=== PATIENT | male | born 1970 | race Caucasian/White ===

== ENCOUNTER → 2017-11-13 15:32 | Outpatient (BNVA) | payer MEDICARE, SELFPAY | PROVIDERS: PCP General Practice; Referring Provider General Practice; Visit Provider Surgery | DX: K62.89 Other specified diseases of anus and rectum (principal) | CPT/HCPCS: 99213 ==

== ENCOUNTER 2017-11-15 18:24 | Emergency (ER) | payer MEDICARE, SELFPAY ==
[2017-11-15 18:52] VITALS: BP 141/92; PULSE 100; RESP 22; TEMP 37; O2SAT 99
[2017-11-15 19:19] LABS: Abs Immature Grans 0.03 k/cumm (0.0-0.09); HCT 44.9 % (40.0-50.0); HGB 16.1 g/dL (13.5-17.5); Mean Corp. HGB Concentration 35.9 g/dL (32.0-36.0); Mean Corpuscular Hemoglobin 30.3 pg (27.0-33.0); Mean Corpuscular Volume 84.4 fL (80-95); Mean Platelet Volume 9.1 fL (8.0-11.0); Platelet Count 349 x1000/uL (130-400); RBC 5.32 m/cumm (4.50-6.00); RBC Distribution Width 12.6 % (11.8-14.1); White Blood Cell Count 15.82 k/cumm (4.4-10.8)
[2017-11-15 19:33] LABS: ALT 37 U/L (12-78); AST 20 U/L (15-37); Albumin 4.8 g/dL (3.4-5.0); Alkaline Phosphatase 113 U/L (46-116); Anion Gap 12.4 mmol/L (3-11); BUN 16 mg/dL (7-18); Bilirubin, Total 0.5 mg/dL (0.2-1.0); CO2 27.6 mmol/L (21.0-32.0); CREATININE 0.97 mg/dL (0.70-1.30); Calcium 9.3 mg/dL (8.5-10.1); Chloride 98 mmol/L (98-107); Glucose 114 mg/dL (70-100); Potassium 3.7 mmol/L (3.5-5.1); Sodium 138 mmol/L (136-145); Total Protein 8.6 g/dL (6.4-8.2)
[2017-11-15 19:53] LABS: Absolute Lymphocyte Count 1.58 k/cumm (1.2-3.4); Atypical Lymphocytes % 5
--- NOTE | 2017-11-15 19:53 | DI.RAD_ITS ---
SYMPTOMS/DIAGNOSIS: ABDOMINAL PAIN PA CHEST AND FLAT AND UPRIGHT ABDOMEN: Comparison is made with chest x-ray dated June,. The heart size is normal. The lungs are clear. No free air is seen. There is no bowel dilatation or air-fluid levels. There is a normal quantity of stool. No urinary tract calculi are visible. IMPRESSION: Negative chest and abdomen.
[2017-11-15 19:54] LABS: Absolute Eosinophil Count 0.16 k/cumm (0.0-0.7); Absolute Monocyte Count 1.11 k/cumm (0.11-0.7); Diff Comment Manual Differential; Other Cells 0; Promyelocytes % 0 %
[2017-11-15 19:55] LABS: Absolute Neutrophil Count 12.97 k/cumm (1.2-6.7)
[2017-11-15] MEDS: Ketorolac 30 MG/ML VIAL IVP (20:13)
[2017-11-15] MEDS: Normal Saline 1,000 ML 1000 ML IV (20:13)
--- NOTE | 2017-11-15 20:22 | DI.VRAD_ITS ---
EXAM: XR Abdomen 2 Views with XR Chest 1 View EXAM DATE/TIME: 11/15/2017 6:57 PM CLINICAL HISTORY: 47 years old, male; Pain; Abdominal pain; Prior surgery; Surgery type: Hernia TECHNIQUE: XR of the abdomen (2 views) with XR chest (1 view). COMPARISON: No relevant prior studies available. FINDINGS: Lungs: The lungs are clear. Pleural space: A pneumothorax. No pleural effusion. Heart/Mediastinum: The cardio mediastinal silhouette is within normal limits. Gastrointestinal tract: Nonobstructive bowel gas pattern. Intraperitoneal space: On the upright view, there is no evidence of pneumoperitoneum. There is a 5 mm rounded opacity in the right upper quadrant seen on series 1003, unknown etiology. This finding is not seen well on the other images and may be artifactual. Alternatively, may represent a small soft tissue calcification, ingested material, gallbladder or renal calculus. Vasculature: The portal vasculature is within normal limits. Bones/joints: The osseous structures are within normal limits. Soft tissues: Normal. IMPRESSION: Nonobstructive bowel gas pattern. No evidence of pneumoperitoneum. Dictated and Authenticated by: Kimi Deleon MD. Ordering:EDITA DE LEON MD
--- NOTE | 2017-11-15 20:25 | ED.GENADUL_ITS ---
Discharge Plan Disposition Patient Disposition: HOME Condition: Improving Discharge Details Chief Complaint: Abd Prob Clinical Impression: Diverticulitis Primary Care Provider: Seymour Martins ED Provider: Thee Rich Home Meds and New Rx's Prescriptions: New amoxicillin-pot clavulanate 875-125 mg tablet 1 tab PO BID 10 Days Qty: 20 RF: 0 Continue dibucaine [Nupercainal] 1 % ointment 1 applic GA QID PRN (Reason: rectal discomfort) Qty: 56.7 RF: 0 multivitamin [Daily Value] 1 EACH tablet 1 ea PO DAILY RF: 0 vitamin B complex [B Complete] 1 EACH tablet 1 ea PO DAILY RF: 0 nortriptyline 50 MG capsule 100 mg PO DAILY MDD 2 tabs 30 Days Qty: 60 RF: 3 ibuprofen 600 MG tablet 600 mg PO TID RF: 0 propranolol 10 MG tablet 20 mg PO BID RF: 0 medical marijuana 1 ea PO PRNRF: 0 loratadine-pseudoephedrine [Claritin-D 24 Hour] 1 EACH tablet extended release 24 hr 1 tab-cap PO daily prn PRNRF: 0 duloxetine 20 MG capsule,delayed release(DR/EC) 1 cap PO DAILY 30 Days Qty: 30 RF: 3 tizanidine 4 MG tablet 1 - 2 tab PO QHS PRN30 Days Qty: 60 RF: 5 acetaminophen [Tylenol Arthritis Pain] 650 MG tablet extended release 650 mg PO BID RF: 0 Discharge Data Discharge Date/Time-TO BE ENTERED AT DEPARTURE: 11/15/17 22:51 Medical Decision Making <Jeff Duval NP - Last Filed: 11/17/17 13:02> Patient presenting to the emergency department for chief complaint of abdominal pain. Patient states that he started having some discomfort yesterday evening in the left lower quadrant. Today it seems to radiate more to the right lower quadrant. Patient does state history of inguinal hernias that have been repaired and recent internal hemorrhoids. He does state that they have had some bleeding intermittently but no change. Patient states that he does have history of constipation with somewhat of a similar presentation but this seems more severe. Patient denies any nausea vomiting, fever chills, or urinary symptoms. Physical exam shows an exquisitely tender left lower quadrant and some tenderness to right lower quadrant with palpation that causes radiating pain into left lower quadrant. Patient has no CVA tenderness and otherwise unremarkable exam. Plan to perform plain film imaging and labs along with giving IV fluids and ketorolac for pain control. After review of labs that show a leukocytosis and a mild anion gap, review of radiological imaging that shows a nonobstructive bowel gas pattern patient was reassessed. Patient still had significant amount of pain and discomfort with no improvement of symptoms. Leukocytosis and no obstruction seen on plain film imaging we do feel that CT imaging is needed for concern of possible diverticulitis, or other intra-abdominal pathology. Patient was given 2 mg of morphine for further pain control. Pending CT results Patient was transferred to Dr. Rich for review of CT imaging and further disposition and treatment as needed. Lab Data Lab results reviewed: Yes I reviewed the patient's lab results. <Thee Rich MD - Last Filed: 11/15/17 23:29> Received signout from Mr. Duval. Please see his note regarding details of the patient's history, presentation, exam and plan of care. Patient CT did show evidence of acute sigmoid diverticulitis. His pain improved , tolerating liquids and solids by mouth, felt better. The patient will be discharged home on a course of Augmentin. To follow-up with primary care. He stable for discharge at this time. Did consent the patient with the use of opiates if needed he was provided a small number of Vicodin for home use HPI <Jeff Duval NP - Last Filed: 11/17/17 13:02> General Date/Time Provider Initiated Documentation: 11/15/17 18:41 . Limitations to Documentation: no limitations . Information obtained by: patient, RN notes reviewed and old records reviewed . History of Present Illness 47 year old M presents to the emergency department with the chief complaint of Abd pain, described as moderate, with intensity rated at 8. Quality is described as stabbing, aching, sharp, dull and constant, and is localized to the abdomen. Patient started experiencing this day(s) (1) and it has been constant. No relieving factors improve symptom(s), No exacerbating factors reported . Patient notes no other symptoms.. Patient did receive the following treatments prior to arrival, NSAID (this am) Related Data Home Medications Medication Instructions Recorded Confirmed acetaminophen [Tylenol Arthritis 650 mg PO BID 11/13/12 11/15/17 Pain] multivitamin [Daily Value] 1 ea PO DAILY 06/14/16 11/15/17 vitamin B complex [B Complete] 1 ea PO DAILY 06/14/16 11/15/17 nortriptyline 100 mg PO DAILY 30 Days #60 MDD 2 10/03/16 11/15/17 tabs ibuprofen 600 mg PO TID tab-cap 12/05/16 11/15/17 Medical Marijuana 1 ea PO PRN 05/16/17 11/13/17 propranolol 20 mg PO BID 05/16/17 11/15/17 duloxetine 1 cap PO DAILY 30 Days #30 cap 06/27/17 11/15/17 loratadine-pseudoephedrine 1 tab-cap PO daily prn PRN tab-cap 06/27/17 11/15/17 [Claritin-D 24 Hour] tizanidine 1 - 2 tab PO QHS PRN 30 Days #60 07/24/17 11/15/17 tab-cap dibucaine 1 % rectal ointment 1 applic GA QID PRN #56.7 gm 11/13/17 11/15/17 amoxicillin-pot clavulanate 1 tab PO BID 10 Days #20 tab 11/15/17 Previous Rx's Medication Instructions Recorded duloxetine 1 cap PO DAILY 30 Days #30 cap 06/27/17 dibucaine 1 % rectal ointment 1 applic GA QID PRN #56.7 gm 11/13/17 amoxicillin-pot clavulanate 1 tab PO BID 10 Days #20 tab 11/15/17 Allergies Allergy/AdvReac Type Severity Reaction Status Date / Time gabapentin AdvReac Severe Visual Verified 11/15/17 18:55 Disturbances pregabalin [From Lyrica] AdvReac Intermediate Verified 11/15/17 18:55 General Stated Complaint: Abd Prob LOLA: 3 Review of Systems <Jeff Duval NP - Last Filed: 11/17/17 13:02> Constitutional Denies chills, Denies fever(s) and Reports poor appetite Cardiovascular Denies chest pain and Denies dyspnea Respiratory Denies dyspnea Gastrointestinal Reports as per HPI, Reports abdominal pain, Denies melena, Denies change in bowel habits, Denies constipation, Denies diarrhea, Reports nausea and Reports vomiting Genitourinary Denies hematuria, Denies difficulty urinating, Denies urinary hesitancy, Denies urinary incontinence and Denies urinary urgency Integumentary/Breasts Denies rash Exam <Jeff Duval NP - Last Filed: 11/17/17 13:02> Const General: cooperative Orientation: alert, awake and oriented x3 Resp Effort & Inspection: normal respiratory effort and able to speak in complete sentences Auscultation: clear to auscultation bilaterally Cardio Rate: regular rate Rhythm: regular rhythm Heart Sounds: S1 normal and S2 normal GI Palpation: soft, no hepatosplenomegaly, not firm, no guarding, no masses, no pulsatile masses, not rigid, no splenomegaly and tender in the LLQ, in the RLQ and at McBurney's point; Cohen's sign negative, psoas sign negative and with no rebound tenderness Auscultation: normal bowel sounds Back/Spine/Pelvis Back: no CVA tenderness Neuro General: alert, awake, oriented x3, gait normal and moves all extremities Course <Jeff Duval NP - Last Filed: 11/17/17 13:02> Vital Signs Temperature 37 C 11/15/17 18:52 Pulse 100 H 11/15/17 18:52 Respiratory Rate 22 11/15/17 18:52 Blood Pressure 141/92 H 11/15/17 18:52 Pulse Oximetry 99 11/15/17 18:52 Temperature 37 C 11/15/17 18:52 Temperature Source Skin 11/15/17 18:52 Pulse 100 H 11/15/17 18:52 Respiratory Rate 22 11/15/17 18:52 Respiratory Effort Non-Labored 11/15/17 18:54 Blood Pressure 141/92 H 11/15/17 18:52 Blood Pressure Position Sitting 11/15/17 18:52 Pulse Oximetry 99 11/15/17 18:52 Oxygen Delivery Method Room Air 11/15/17 18:52 Oxygen Flow Rate 0 11/15/17 18:52 Pain Level 5 11/15/17 20:13 Lab/Test Results Lab/Test Results: Laboratory Tests Range/Units 11/15/17 11/15/17 19:10 19:10 WBC (4.4-10.8) k/cumm 15.82 H RBC (4.50-6.00) m/cumm 5.32 Hgb (13.5-17.5) g/dL 16.1 Hct (40.0-50.0) % 44.9 MCV (80-95) fL 84.4 MCH (27.0-33.0) pg 30.3 MCHC (32.0-36.0) g/dL 35.9 RDW (11.8-14.1) % 12.6 Plt Count (130-400) x1000/uL 349 MPV (8.0-11.0) fL 9.1 Immature Gran % See Differential Neutrophils % 80.0 Lymphocytes % 5.0 Monocytes % 7.0 Eosinophils % 1.0 Basophils % 0.0 Absolute Neutrophils (1.2-6.7) k/cumm 12.97 H Band Neutrophils % 2.0 Absolute Lymphocytes (1.2-3.4) k/cumm 1.58 Absolute Monocytes (0.11-0.7) k/cumm 1.11 H Absolute Eosinophils (0.0-0.7) k/cumm 0.16 Absolute Basophils (0.0-0.2) k/cumm 0.00 Metamyelocytes % 0.0 Myelocytes % 0.0 Promyelocytes % 0 Differential Comment Manual differential Atypical Lymphocytes 5 Other Cell Type 0 RBC Morphology See below Sodium (136-145) mmol/L 138 Potassium (3.5-5.1) mmol/L 3.7 Chloride (98-107) mmol/L 98 Carbon Dioxide (21.0-32.0) mmol/L 27.6 Anion Gap (3-11) mmol/L 12.4 H BUN (7-18) mg/dL 16 Creatinine (0.70-1.30) mg/dL 0.97 Estimated GFR/1.73 m2 (mL/min/1.73m2) >= 60.00 Glucose (70-100) mg/dL 114 H Calcium (8.5-10.1) mg/dL 9.3 Total Bilirubin (0.2-1.0) mg/dL 0.5 AST (15-37) U/L 20 ALT (12-78) U/L 37 Alkaline Phosphatase (46-116) U/L 113 Total Protein (6.4-8.2) g/dL 8.6 H Albumin (3.4-5.0) g/dL 4.8 Sign Out <Jeff Duval NP - Last Filed: 11/17/17 13:02> Sign Out Data: Sign Out Comment: Care of patient signed out to Dr. Rich for review of CT imaging, further disposition, further stabilization or treatment as needed. Last updated by Jeff Duval NP at 11/15/17 21:58
--- NOTE | 2017-11-15 20:49 | DI.VRAD_ITS ---
Addendum created by Kimi Deleon MD on 11/15/2017 8:49:42 PM EDT This addendum serves to clarify the findings under the category pleural space. The initial preliminary report states a pneumothorax. This finding represents a voice recognition dictation error and should state no pneumothorax. No pneumothorax is present on the chest radiograph. The remainder of findings and impression remain unchanged. Initial report created on 11/15/2017 8:21:33 PM EDT EXAM: XR Abdomen 2 Views with XR Chest 1 View EXAM DATE/TIME: 11/15/2017 6:57 PM CLINICAL HISTORY: 47 years old, male; Pain; Abdominal pain; Prior surgery; Surgery type: Hernia TECHNIQUE: XR of the abdomen (2 views) with XR chest (1 view). COMPARISON: No relevant prior studies available. FINDINGS: Lungs: The lungs are clear. Pleural space: A pneumothorax. No pleural effusion. Heart/Mediastinum: The cardio mediastinal silhouette is within normal limits. Gastrointestinal tract: Nonobstructive bowel gas pattern. Intraperitoneal space: On the upright view, there is no evidence of pneumoperitoneum. There is a 5 mm rounded opacity in the right upper quadrant seen on series 1003, unknown etiology. This finding is not seen well on the other images and may be artifactual. Alternatively, may represent a small soft tissue calcification, ingested material, gallbladder or renal calculus. Vasculature: The portal vasculature is within normal limits. Bones/joints: The osseous structures are within normal limits. Soft tissues: Normal. IMPRESSION: Nonobstructive bowel gas pattern. No evidence of pneumoperitoneum. Dictated and Authenticated by: Kimi Deleon MD. Ordering:EDITA DE LEON MD
[2017-11-15 20:58] VITALS: TEMP 37.6
[2017-11-15] MEDS: MORPHine 10 MG/ML VIAL 2 MG IVP ×2 (21:03→22:21)
--- NOTE | 2017-11-15 21:58 | DI.CT_ITS ---
SYMPTOMS/DIAGNOSIS: LEFT LOWER QUADRANT PAIN CT OF THE ABDOMEN AND PELVIS: Images were performed from the lung bases through the ischial tuberosities after IV and without oral contrast. Diverticula are seen along the lower descending and sigmoid colon. There is wall thickening and stranding in the fat at the junction of the descending and sigmoid colon, consistent with diverticulitis. There is no evidence of a drainable abscess or fluid collection. There is no abnormal bowel dilatation. The appendix appears normal. There is no evidence of free air. The lung bases are clear. The liver , gallbladder, spleen, pancreas, adrenals and kidneys, as well as urinary bladder appear normal. IMPRESSION: Diverticulitis at the junction of the descending and sigmoid colon.
--- NOTE | 2017-11-15 22:10 | DI.VRAD_ITS ---
EXAM: CT Abdomen and Pelvis With Intravenous Contrast EXAM DATE/TIME: 11/15/2017 8:58 PM CLINICAL HISTORY: 47 years old, male; Pain; Abdominal pain; Localized; Left lower quadrant (llq) TECHNIQUE: Axial computed tomography images of the abdomen and pelvis with intravenous contrast. Coronal and sagittal reformatted images were created and reviewed. CONTRAST: 100 ml of Omnipaque 350 administered intravenously. COMPARISON: CR XR ABD FLAT UPRIGHT PA CHEST 11/15/2017 7:45 PM FINDINGS: Lower thorax: No acute findings. ABDOMEN: Liver: Normal. No mass. Gallbladder and bile ducts: Normal. No calcified stones. No ductal dilation. Pancreas: Normal. No ductal dilation. Spleen: Normal. No splenomegaly. Adrenals: Normal. No mass. Kidneys and ureters: Punctate nonobstructing left interpolar renal calculus. Subcentimeter right lower pole renal hypoattenuating lesion, too small to further characterize, likely a small cyst. Stomach and bowel: Diverticulosis with focal wall thickening and pericolonic inflammatory change in the sigmoid colon surrounding a diverticulum consistent with acute diverticulitis. No evidence of drainable fluid collection or pneumoperitoneum Appendix: Normal appendix. PELVIS: Bladder: Unremarkable as visualized. Reproductive: Unremarkable as visualized. ABDOMEN and PELVIS: Intraperitoneal space: See Stomach And Bowel Finding. Bones/joints: No acute fracture. No dislocation. Soft tissues: Tiny fat containing umbilical hernia. Vasculature: Mild aortoiliac atherosclerotic calcification. Lymph nodes: Normal. No enlarged lymph nodes. IMPRESSION: Acute sigmoid diverticulitis. No evidence of fluid collection or pneumoperitoneum. Dictated and Authenticated by: Kimi Deleon MD. Ordering:EDITA DE LEON MD
[2017-11-15] MEDS: Amoxicillin 875/Clav. 125 TAB PO (22:44)
[2017-11-15] MEDS: HYDROcodone 5/Acetaminophen 325 TAB PO (22:44)
[2017-11-15 22:50] VITALS: BP 124/83; PULSE 98; RESP 16; TEMP 37.2; O2SAT 97
[2017-11-15] MEDS: Omnipaque 350 MG/ML 100 ML BTL IJ (22:51)
== END 2017-11-15 22:51 | disposition home or self-care (01) ==
PROVIDERS: Nurse Practitioner Family; Emergency Provider Emergency Medicine; PCP General Practice
DX: K57.32 Diverticulitis of large intestine without perforation or abscess without bleeding (principal)
CPT/HCPCS: 36415; 80053; 96361; 96374; 96375; 96376; 99285; 74022; 74177; 85025; 99284; J1885; J2270; J3490

== ENCOUNTER 2017-11-23 06:26 | Day surgery (SDC) | payer MEDICARE, SELFPAY ==
[2017-11-23 06:41] VITALS: BP 123/93; PULSE 69; RESP 18; TEMP 36.9; O2SAT 95
[2017-11-23] MEDS: Lactated Ringers 1,000 ML 30 ML IV (07:15)
[2017-11-23 08:30] VITALS: BP 104/70; PULSE 68; RESP 12; TEMP 36.6; O2SAT 98
[2017-11-23 08:35] VITALS: BP 105/74; BP 121/80; PULSE 61; PULSE 70; RESP 13; RESP 14; TEMP 36.6; O2SAT 98; O2SAT 99
[2017-11-23 08:40] VITALS: BP 119/82; PULSE 60; RESP 14; TEMP 36.6; O2SAT 99
[2017-11-23 08:54] VITALS: BP 116/83; PULSE 58; RESP 12; TEMP 36.6; O2SAT 100
--- NOTE | 2017-11-23 09:29 | W.PM.DSUDISC ---
Discharge Plan Disposition Patient Disposition: HOME Condition: Good Discharge Details Reason For Visit: Rectal Pain Attending Provider: Lorenzo Hernandez Primary Care Provider: Seymour Martins Home Meds and New Rx's Prescriptions: Continue dibucaine [Nupercainal] 1 % ointment 1 applic MT QID PRN (Reason: rectal discomfort) Qty: 56.7 RF: 0 multivitamin [Daily Value] 1 EACH tablet 1 ea PO DAILY RF: 0 vitamin B complex [B Complete] 1 EACH tablet 1 ea PO DAILY RF: 0 nortriptyline 50 MG capsule 100 mg PO HS MDD 2 tabs 30 Days Qty: 60 RF: 3 ibuprofen 600 MG tablet 600 mg PO TID PRNRF: 0 propranolol 10 MG tablet 20 mg PO BID RF: 0 medical marijuana 1 ea PO PRNRF: 0 loratadine-pseudoephedrine [Claritin-D 24 Hour] 1 EACH tablet extended release 24 hr 1 tab-cap PO daily prn PRNRF: 0 tizanidine 4 MG tablet 1 - 2 tab PO QHS PRN30 Days Qty: 60 RF: 5 acetaminophen [Tylenol Arthritis Pain] 650 MG tablet extended release 650 mg PO BID RF: 0 amlodipine 10 mg Tablet 10 mg PO HS RF: 0 amoxicillin-pot clavulanate 875-125 mg tablet 1 tab PO BID 10 Days Qty: 20 RF: 0 Discharge Instructions Instructions: Sphincterotomy (DC), Rubber Band Ligation (DC) Referrals: Lorenzo Hernandez DO [ [facility] STAFF PHYSICIAN] - 12/04/17 2:00 pm (Follow up after sphincterotomy, and hemorrhoid banding) Activity:: Activity as Tolerated Remove Dressings/Wound Care:: 24 hours Shower/Bathe:: 24 hours Diet:: Normal Diet Discharge Orders Discharge Orders: Discharge Order (Routine); Ordered 11/23/17 Ordered By: Lorenzo Hernandez DS: Diagnosis Discharge Diagnosis (1) Anal fissure: Status: Acute Asessment and Plan: Lateral sphincterotomy performed (2) Bleeding hemorrhoids: Status: Acute Asessment and Plan: Rubber band ligation of multiple hemorrhoids
--- NOTE | 2017-11-23 09:33 | PDOC.DSDIS_ITS ---
Discharge Plan Disposition Patient Disposition: HOME Condition: Good Discharge Details Reason For Visit: Rectal Pain Attending Provider: Lorenzo Hernandez Primary Care Provider: Seymour Martins Home Meds and New Rx's Prescriptions: Continue dibucaine [Nupercainal] 1 % ointment 1 applic [place] QID PRN (Reason: rectal discomfort) Qty: 56.7 RF: 0 multivitamin [Daily Value] 1 EACH tablet 1 ea PO DAILY RF: 0 vitamin B complex [B Complete] 1 EACH tablet 1 ea PO DAILY RF: 0 nortriptyline 50 MG capsule 100 mg PO HS MDD 2 tabs 30 Days Qty: 60 RF: 3 ibuprofen 600 MG tablet 600 mg PO TID PRNRF: 0 propranolol 10 MG tablet 20 mg PO BID RF: 0 medical marijuana 1 ea PO PRNRF: 0 loratadine-pseudoephedrine [Claritin-D 24 Hour] 1 EACH tablet extended release 24 hr 1 tab-cap PO daily prn PRNRF: 0 tizanidine 4 MG tablet 1 - 2 tab PO QHS PRN30 Days Qty: 60 RF: 5 acetaminophen [Tylenol Arthritis Pain] 650 MG tablet extended release 650 mg PO BID RF: 0 amlodipine 10 mg Tablet 10 mg PO HS RF: 0 amoxicillin-pot clavulanate 875-125 mg tablet 1 tab PO BID 10 Days Qty: 20 RF: 0 Discharge Instructions Instructions: Sphincterotomy (DC), Rubber Band Ligation (DC) Referrals: Lorenzo Hernandez DO [ [facility] STAFF PHYSICIAN] - 12/04/17 2:00 pm (Follow up after sphincterotomy, and hemorrhoid banding) Activity:: Activity as Tolerated Remove Dressings/Wound Care:: 24 hours Shower/Bathe:: 24 hours Diet:: Normal Diet Discharge Orders Discharge Orders: Discharge Order (Routine); Ordered 11/23/17 Ordered By: Lorenzo Hernandez DS: Diagnosis Discharge Diagnosis (1) Anal fissure: Status: Acute Asessment and Plan: Lateral sphincterotomy performed (2) Bleeding hemorrhoids: Status: Acute Asessment and Plan: Rubber band ligation of multiple hemorrhoids
[2017-11-23 09:55] VITALS: BP 147/99; PULSE 78; RESP 16; TEMP 35.7; O2SAT 96
--- NOTE | 2017-11-23 16:32 | W.PM.OP ---
Date of service: 11/23/17 Time of Service: 08:30 Operative Note DATE OF PROCEDURE: 11/23/17 PRE-OP DIAGNOSIS: Anal and rectal pain POST-OP DIAGNOSIS: other PROCEDURE: 1. Lateral sphincterotomy 2. Rubber band ligation of multiple hemorrhoidal columns SURGEON: Lorenzo Hernandez SCORE CALLER: Jyoti Bergman ANESTHESIA: MAC (Sunitha Oliveira CRNA; ASA 2, Mallampati class II), local (1.3% Exparel mixed with preservative-free saline) and spinal (Saddle block) ESTIMATED BLOOD LOSS: 1 PATHOLOGY: none sent COMPLICATIONS: None Patient was transported to: PACU Patient's condition: stable Indications: 57-year-old male referred with about a week's worth of anal pain. This started after passing hard stool and being constipated. [place] severe burning pain after passing the stool with associated bleeding. The bleeding has resolved though he has intermittent episodes still. The pain has improved but it still present. He has had a history of hemorrhoids which he is been reluctant to treat surgically instead trying conservative medical management. He says he has had these intermittent episodes of bleeding not as severe as the current with some associated discomfort. He now is significant discomfort with bowel movements. He does have a history of constipation he denies any fever, chills, malaise, and has had no known weight loss. 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 Subsequently, a lateral sphincterotomy was performed and rubber band ligation was performed of the engorged hemorrhoidal columns. Procedure Description: The patient was brought to the operating room. A timeout was taken prior to placement of a spinal saddle block. He was then positioned prone jackknife with the gluteal cleft by standard taping. A separate timeout was then taken reviewing the patient's: Identification, allergies, medications, and procedure. Sedation was then titrated for effect by the DARYL. The perineum was prepped with Betadine, and block draped in the standard sterile fashion. I began by performing gentle digital examination of the anus and rectum, where I could palpate it tightened external anal sphincter which was a little less than 1 cm in diameter, and was palpable circumferentially. I then proceeded to perform a circumferential anoscopic examination of the anus and rectum. The posterior midline fissure was noticeable, and was thickened due to chronic scarring. Also, notable was the right posterior and left lateral hemorrhoidal columns which were notably engorged and friable. After completing my circumferential inspection of the anus and distal rectum, I proceeded to band the left lateral hemorrhoidal column in the right posterior hemorrhoidal column by rubber band ligation. It required for firings to adequately address the excess engorged hemorrhoidal tissue. With the banding complete I then proceeded to perform a lateral sphincterotomy. I made a 1.5 cm radial incision starting just above the anal verge. Blunt dissection was then used to dissect out anterior and posterior to the most distal portion of the external sphincter muscle. A right angle clamp was then used to separate out a little less than a centimeter band of the tightened external sphincter muscle, this accounted for the rubber band palpable on digital examination. Once this was exteriorized, it was divided using cautery. Hemostasis was obtained in the wound bed using cautery. I then injected Exparel circumferentially around the anal verge for pain control. The patient was awakened in the operating room and brought to post?anesthesia care unit in good condition. All counts were reported as correct x2.
--- NOTE | 2017-11-23 16:51 | ROE_ITS ---
Date of service: 11/23/17 Time of Service: 08:30 Operative Note DATE OF PROCEDURE: 11/23/17 PRE-OP DIAGNOSIS: Anal and rectal pain POST-OP DIAGNOSIS: other PROCEDURE: 1. Lateral sphincterotomy 2. Rubber band ligation of multiple hemorrhoidal columns SURGEON: Lorenzo Hernandez JOURNEYMAN CARPENTER: Jyoti Bergman ANESTHESIA: MAC (Sunitha Oliveira CRNA; ASA 2, Mallampati class II), local (1.3% Exparel mixed with preservative-free saline) and spinal (Saddle block) ESTIMATED BLOOD LOSS: 1 PATHOLOGY: none sent COMPLICATIONS: None Patient was transported to: PACU Patient's condition: stable Indications: 57-year-old male referred with about a week's worth of anal pain. This started after passing hard stool and being constipated. [place] severe burning pain after passing the stool with associated bleeding. The bleeding has resolved though he has intermittent episodes still. The pain has improved but it still present. He has had a history of hemorrhoids which he is been reluctant to treat surgically instead trying conservative medical management. He says he has had these intermittent episodes of bleeding not as severe as the current with some associated discomfort. He now is significant discomfort with bowel movements. He does have a history of constipation he denies any fever, chills, malaise, and has had no known weight loss. 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 Subsequently, a lateral sphincterotomy was performed and rubber band ligation was performed of the engorged hemorrhoidal columns. Procedure Description: The patient was brought to the operating room. A timeout was taken prior to placement of a spinal saddle block. He was then positioned prone jackknife with the gluteal cleft by standard taping. A separate timeout was then taken reviewing the patient's: Identification, allergies, medications, and procedure. Sedation was then titrated for effect by the DARYL. The perineum was prepped with Betadine, and block draped in the standard sterile fashion. I began by performing gentle digital examination of the anus and rectum, where I could palpate it tightened external anal sphincter which was a little less than 1 cm in diameter, and was palpable circumferentially. I then proceeded to perform a circumferential anoscopic examination of the anus and rectum. The posterior midline fissure was noticeable, and was thickened due to chronic scarring. Also, notable was the right posterior and left lateral hemorrhoidal columns which were notably engorged and friable. After completing my circumferential inspection of the anus and distal rectum, I proceeded to band the left lateral hemorrhoidal column in the right posterior hemorrhoidal column by rubber band ligation. It required for firings to adequately address the excess engorged hemorrhoidal tissue. With the banding complete I then proceeded to perform a lateral sphincterotomy. I made a 1.5 cm radial incision starting just above the anal verge. Blunt dissection was then used to dissect out anterior and posterior to the most distal portion of the external sphincter muscle. A right angle clamp was then used to separate out a little less than a centimeter band of the tightened external sphincter muscle, this accounted for the rubber band palpable on digital examination. Once this was exteriorized, it was divided using cautery. Hemostasis was obtained in the wound bed using cautery. I then injected Exparel circumferentially around the anal verge for pain control. The patient was awakened in the operating room and brought to post ?anesthesia care unit in good condition. All counts were reported as correct x2.
== END 2017-11-23 10:40 | disposition home or self-care (01) ==
PROVIDERS: PCP General Practice; Visit Provider Surgery
PROC: (CPT 46080; principal; 2017-11-23 07:30)
PROC: (CPT 46080; 2017-11-23 07:30)
DX: K60.1 Chronic anal fissure (principal); K64.5 Perianal venous thrombosis
CPT/HCPCS: 46080; J2250; J2405

== ENCOUNTER → 2017-12-04 10:52 | Outpatient (BNVA) | payer MEDICARE, SELFPAY | PROVIDERS: PCP General Practice; Referring Provider General Practice; Visit Provider Surgery | DX: Z48.815 Encounter for surgical aftercare following surgery on the digestive system (principal); K60.1 Chronic anal fissure; K64.5 Perianal venous thrombosis ==

== ENCOUNTER 2018-06-28 17:39 | Outpatient (REF) | payer MEDICARE, SELFPAY ==
[2018-06-28 19:59] LABS: Clarity Clear; Specific Gravity 1.022 (1.005-1.025)
[2018-06-28 20:01] LABS: Bacteria Negative HPF (Negative); C & S Indicated? No; Casts Negative LPF (Negative); Crystals Negative HPF (Negative); Epithelial Cells Negative HPF (Negative); Mucus Negative (Negative); Other Cells Negative (Negative); RBC 0-2 (0-2); WBC 0-2 HPF (0-5)
== END 2018-06-28 17:59 ==
LOC: LBN 17:39
PROVIDERS: PCP General Practice; Visit Provider General Practice
DX: R30.0 Dysuria (principal)
CPT/HCPCS: 81003; 81015

== ENCOUNTER 2018-10-14 11:05 | Emergency (ER) | payer MEDICARE, SELFPAY ==
--- NOTE | 2018-10-14 11:12 | NUR.NOTE ---
Nursing Note: pt has history of back spasm. pt woke up yesterday morning with a significant spasm 7/10 pain pt states normal ketorolac and physical therapy resolve his symptoms
[2018-10-14 11:14] VITALS: BP 147/96; PULSE 80; RESP 16; TEMP 37.2; O2SAT 99
--- NOTE | 2018-10-14 11:24 | W.ED.GENAD ---
Discharge Plan Disposition Patient Disposition: HOME Discharge Details Chief Complaint: Nk/Back Pain Clinical Impression: Chronic back pain Primary Care Provider: Seymour Martins ED Provider: Andrez Urbina Home Meds and New Rx's Prescriptions: Continued tizanidine 4 mg tablet 4 mg PO BID PRN (Reason: muscle spasticity) 30 Days Qty: 60 RF: 5 ibuprofen 800 mg tablet 800 mg PO TID PRN (Reason: pain) 30 Days Qty: 90 RF: 5 multivitamin [Daily Value] 1 EACH tablet 1 ea PO DAILY RF: 0 vitamin B complex [B Complete] 1 EACH tablet 1 ea PO DAILY RF: 0 propranolol 10 MG tablet 20 mg PO BID RF: 0 medical marijuana 1 ea PO PRNRF: 0 loratadine-pseudoephedrine [Claritin-D 24 Hour] 1 EACH tablet extended release 24 hr 1 tab-cap PO daily prn PRNRF: 0 nortriptyline 50 mg capsule 100 mg PO QHS 30 Days Qty: 60 RF: 5 acetaminophen [Tylenol Arthritis Pain] 650 MG tablet extended release 650 mg PO BID RF: 0 amlodipine 10 mg Tablet 10 mg PO HS RF: 0 Discharge Instructions Instructions: Chronic Back Pain (ED) Additional Instructions: Take 650 mg of acetaminophen (Tylenol) every 6 hours in addition to 600 mg of ibuprofen every 6 hours. Follow-up with your primary care provider. You should discuss physical therapy. Return to the emergency department immediately if you develop any numbness, fever, or for any other concerning or worsening symptoms at all. Referrals: Seymour Martins MD [Primary Care Provider] - Medical Decision Making This patient is a 48-year-old male who presents to the emergency department with chief complaint of back pain. Based on the history, exam, this is unlikely to be due to cauda equina syndrome, discitis, osteomyelitis, epidural abscess, epidural hematoma. Patient feels better after ketorolac and methocarbamol. He will be provided return precautions, discharge instructions and he agrees with the outpatient treatment plan. HPI My back is having a spasm. This patient is a 48-year-old male who presents to the emergency department with chief complaint of back spasm. He states that it started yesterday morning when he woke up. Nothing has made him feel better. It is located on the left mid back and radiates up towards the shoulder. No fevers, chest pain, difficulty breathing, recent cold. He does complain of weakness in his arm from the severe pain. He denies any other numbness or weakness. No difficulty with urination or stool, no leaking of urine or stool. The pain does not really radiate anywhere else. Pain is been constant. It is a sharp. Feels like previous episodes of back pain. General Date/Time Provider Initiated Documentation: 10/14/18 11:24. Related Data Home Medications Medication Instructions Recorded Confirmed acetaminophen [Tylenol Arthritis 650 mg PO BID 11/13/12 10/14/18 Pain] multivitamin [Daily Value] 1 ea PO DAILY 06/14/16 10/14/18 vitamin B complex [B Complete] 1 ea PO DAILY 06/14/16 10/14/18 Medical Marijuana 1 ea PO PRN 05/16/17 04/23/18 propranolol 20 mg PO BID 05/16/17 10/14/18 loratadine-pseudoephedrine 1 tab-cap PO daily prn PRN tab-cap 06/27/17 10/14/18 [Claritin-D 24 Hour] amlodipine 10 mg PO HS 11/20/17 10/14/18 ibuprofen 800 mg tablet 800 mg PO TID PRN 30 Days #90 tab 04/23/18 10/14/18 tizanidine 4 mg tablet 4 mg PO BID PRN 30 Days #60 tab 04/23/18 10/14/18 nortriptyline 50 mg capsule 100 mg PO QHS 30 Days #60 cap 09/05/18 10/14/18 Previous Rx's Medication Instructions Recorded ibuprofen 800 mg tablet 800 mg PO TID PRN 30 Days #90 tab 04/23/18 tizanidine 4 mg tablet 4 mg PO BID PRN 30 Days #60 tab 04/23/18 nortriptyline 50 mg capsule 100 mg PO QHS 30 Days #60 cap 09/05/18 Allergies Allergy/AdvReac Type Severity Reaction Status Date / Time gabapentin AdvReac Severe Visual Verified 10/14/18 11:15 Disturbances duloxetine [From Cymbalta] AdvReac Intermediate Facial Verified 10/14/18 11:15 tic, trouble swallowing pregabalin [From Lyrica] AdvReac Intermediate Verified 10/14/18 11:15 General Stated Complaint: Nk/Back Pain LOLA: 4 Review of Systems Review of Systems Gen: no fevers. Card: no chest pain. Resp: No cough, difficulty breathing. Abd: no vomiting, abd pain. The rest of the 10 point review of systems is negative except as described in the HPI and above in the ROS. [facility] Medical History He's palsy (Acute) Chronic back pain Hemorrhoids that prolapse with straining, but retract spontaneously Inguinal hernia (Acute) bilateral Legally blind Macular degeneration Surgical History H/O rectal sphincterotomy (Acute 11/23/17) and hemorrhoid banding, Dr Hernandez Repair of inguinal hernia right and left Social History Smoking/Tobacco Use Status: Former Tobacco Use Alcohol Intake: current Alcohol Intake frequency: a few times a month Alcohol type: beer Drug use: Daily Substance use type: does not use Do you feel safe at home: Yes Do you feel safe in your relationship?: Yes Exam Narrative Exam Narrative: Gen: no acute distress, alert. Lung: no respiratory distress. Card: 2+ radial pulses bilaterally. Back: tenderness and spasm on left mid back. Upper extremity: no evidence of trauma. strength is 5/5 in both extremities. Lower extremity: no edema. Neuro: speech normal, no gross motor deficits. 2+ achilles and patellar reflexes. Psych: alert and oriented to person, place time, normal affect. Skin: warm, intact. Course Vital Signs Temperature 37.2 C 10/14/18 11:14 Pulse 80 10/14/18 11:14 Respiratory Rate 16 10/14/18 11:14 Blood Pressure 147/96 H 10/14/18 11:14 Pulse Oximetry 99 10/14/18 11:14 Temperature 37.2 C 10/14/18 11:14 Temperature Source Skin 10/14/18 11:14 Pulse 80 10/14/18 11:14 Respiratory Rate 16 10/14/18 11:14 Respiratory Effort 10/14/18 11:16 Blood Pressure 147/96 H 10/14/18 11:14 Blood Pressure Position Sitting 10/14/18 11:14 Pulse Oximetry 99 10/14/18 11:14 Oxygen Delivery Method Room Air 10/14/18 11:14 Oxygen Flow Rate 0 10/14/18 11:14 Pain Level 7 10/14/18 11:14
[2018-10-14] MEDS: Ketorolac 30 MG/ML VIAL IM (11:41)
[2018-10-14] MEDS: Methocarbamol 500 MG TAB 1500 MG PO (11:41)
== END 2018-10-14 12:05 | disposition home or self-care (01) ==
PROVIDERS: Emergency Provider Emergency Medicine; PCP General Practice
DX: M54.5 Low back pain (principal); G89.29 Other chronic pain
CPT/HCPCS: 96372; 99284; 99283; J1885

== ENCOUNTER 2018-12-03 01:51 | Outpatient (CLI) | payer MEDICARE, SELFPAY ==
--- NOTE | 2018-12-03 10:19 | DI.MRI_ITS ---
EXAM: MR CERVICAL SPINE WO CLINICAL HISTORY: CERVICAL RADICULOPATHY, C7 DERMATOMAL. TECHNIQUE: Multiplanar multisequence MRI was performed. COMPARISON: No exams were available for comparison FINDINGS: There is patient motion artifact present. There is normal signal in the spinal cord. No evidence of tonsillar ectopia is present. At C7-T1, there is no focal disc herniation, central spinal canal, or neural foraminal stenosis. At C6-C7, there is prominence of the osteophyte disc complex causing moderate narrowing of the centra l spinal canal. There is flattening of the spinal cord. There is [id number] bilateral neural f oraminal stenosis. At C5-C6, there is prominence of the osteophyte disc complex causing moderate narrowing of the centra l spinal canal. There is flattening of the spinal cord. Severe right and moderate left neural south inal stenosis is present. At C4-C5, there is prominence of the osteophyte disc complex with mild narrowing of the central spina l canal. Moderately severe bilateral neural foraminal stenosis is present. At C3-C4, there is no focal disc herniation or central spinal canal stenosis. There is moderate righ t and mild left neural foraminal stenosis. At C2-C3, there is no focal disc herniation, central spinal canal, or neural foraminal stenosis. There is reversal of the normal cervical lordosis centered at C4-C5. IMPRESSION: Severe degenerative changes throughout the cervical spine resulting in multilevel central spinal mahi l and neural foraminal stenosis.
== END 2018-12-03 02:11 ==
PROVIDERS: PCP General Practice; Visit Provider Nurse Practitioner Family
DX: M54.12 Radiculopathy, cervical region (principal); M47.22 Other spondylosis with radiculopathy, cervical region; M99.51 Intervertebral disc stenosis of neural canal of cervical region
CPT/HCPCS: 72141

== ENCOUNTER 2018-12-10 14:01 | Outpatient (REF) | payer MEDICARE, SELFPAY ==
[2018-12-13 14:55] LABS: 2-Hydroxy Ethyl Flurazepam Not Detected ng/mL (Cutoff: 10); 6-monoacetylmorphine Not Detected ng/mL (Cutoff: 25); Alpha-Hydroxy Midazolam Not Detected ng/mL (Cutoff: 10); Alpha-Hydroxy Triazolam Not Detected ng/mL (Cutoff: 10); Alpha-Hydroxyalprazolam Not Detected ng/mL (Cutoff: 10); Alpha-OH-alprazolam Glucuronid Not Detected ng/mL (Cutoff: 50); Alprazolam Not Detected ng/mL (Cutoff: 10); Amphetamines Negative ng/mL (Cutoff: 500); Barbiturates Negative ng/mL (Cutoff: 200); Buprenorphine Not Detected ng/mL (Cutoff: 5); Chlordiazepoxide Not Detected ng/mL (Cutoff: 10); Clobazam Not Detected ng/mL (Cutoff: 10); Clonazepam Not Detected ng/mL (Cutoff: 10); Cocaine Negative ng/mL (Cutoff: 150); Codeine Not Detected ng/mL (Cutoff: 25); Comment Normal; Creatinine, U 37.6 mg/dL; Diazepam Not Detected ng/mL (Cutoff: 10); Dihydrocodeine Not Detected ng/mL (Cutoff: 25); EDDP Not Detected ng/mL (Cutoff: 25); Fentanyl Not Detected ng/mL (Cutoff: 2); Flurazepam Not Detected ng/mL (Cutoff: 10); Hydrocodone Not Detected ng/mL (Cutoff: 25); Hydromorphone Not Detected ng/mL (Cutoff: 25); Hydromorphone-3-beta-glucuroni Not Detected ng/mL (Cutoff: 100); Lorazepam Not Detected ng/mL (Cutoff: 10); Lorazepam Glucuronide Not Detected ng/mL (Cutoff: 50); Meperidine Not Detected ng/mL (Cutoff: 25); Methadone Not Detected ng/mL (Cutoff: 25); Midazolam Not Detected ng/mL (Cutoff: 10); Morphine Not Detected ng/mL (Cutoff: 25); N-Desmethylclobazam Not Detected ng/mL (Cutoff: 200); N-desmethyltapentadol Not Detected ng/mL (Cutoff: 50); Naloxone Not Detected ng/mL (Cutoff: 25); Norbuprenorphine Not Detected ng/mL (Cutoff: 5); Norfentanyl Not Detected ng/mL (Cutoff: 2); Norhydrocodone Not Detected ng/mL (Cutoff: 25); Normeperidine Not Detected ng/mL (Cutoff: 25); Noroxycodone Not Detected ng/mL (Cutoff: 25); Noroxymorphone Not Detected ng/mL (Cutoff: 25); O-desmethyltramadol Not Detected ng/mL (Cutoff: 25); Oxazepam Glucuronide Not Detected ng/mL (Cutoff: 50); Phencyclidine Negative ng/mL (Cutoff: 25); Prazepam Not Detected ng/mL (Cutoff: 10); Propoxyphene Not Detected ng/mL (Cutoff: 25); Specific Gravity 1.006; Tapentadol Not Detected ng/mL (Cutoff: 25); Temazepam Not Detected ng/mL (Cutoff: 10); Temazepam Glucuronide Not Detected ng/mL (Cutoff: 50); Tetrahydrocannabinol Negative ng/mL (Cutoff: 50); Tramadol Not Detected ng/mL (Cutoff: 25); Triazolam Not Detected ng/mL (Cutoff: 10); Zolpidem Phenyl-4-Carboxy acid Not Detected ng/mL (Cutoff: 10); pH 6.2
== END 2018-12-10 14:21 ==
LOC: LBN 14:01
PROVIDERS: Visit Provider Nurse Practitioner Family
DX: M54.12 Radiculopathy, cervical region (principal); M47.22 Other spondylosis with radiculopathy, cervical region; M99.51 Intervertebral disc stenosis of neural canal of cervical region; Z79.899 Other long term (current) drug therapy
CPT/HCPCS: 80307; 80347; 80364

== ENCOUNTER 2019-01-21 10:30 | Emergency (ER) | payer MEDICARE, SELFPAY ==
[2019-01-21 10:34] VITALS: BP 149/98; PULSE 87; TEMP 36.7; O2SAT 96
--- NOTE | 2019-01-21 10:50 | ED.GENADUL_ITS ---
Discharge Plan Disposition Patient Disposition: HOME Condition: Good Discharge Details Chief Complaint: RespSymp Clinical Impression: Acute viral bronchitis Primary Care Provider: Seymour Martins ED Provider: Kimi Monzon Home Meds and New Rx's Prescriptions: New albuterol sulfate 2.5 mg /3 mL (0.083 %) solution for nebulization 2.5 mg IH Q6H PRN (Reason: shortness of breath or wheezing) Qty: 75 RF: 0 benzonatate [Tessalon Perles] 100 mg capsule 100 mg PO TID PRN (Reason: cough) Qty: 14 RF: 0 Continued multivitamin [Daily Value] 1 EACH tablet 1 ea PO DAILY RF: 0 vitamin B complex [B Complete] 1 EACH tablet 1 ea PO DAILY RF: 0 propranolol 10 MG tablet 20 mg PO BID RF: 0 medical marijuana 1 ea PO PRNRF: 0 loratadine-pseudoephedrine [Claritin-D 24 Hour] 1 EACH tablet extended release 24 hr 1 tab-cap PO daily prn PRNRF: 0 nortriptyline 50 mg capsule 100 mg PO QHS 30 Days Qty: 60 RF: 5 tizanidine 4 mg tablet 4 - 8 mg PO QHS PRN (Reason: muscle spasticity) 30 Days Qty: 60 RF: 11 acetaminophen [Tylenol Arthritis Pain] 650 MG tablet extended release 650 mg PO BID RF: 0 amlodipine 10 mg Tablet 10 mg PO HS RF: 0 Discharge Instructions Instructions: Acute Bronchitis (ED) Additional Instructions: Drink plenty of fluids. Rest activities as tolerated. Increase vitamin C. Use inhaler or nebulizer for shortness of breath or wheezing if needed as needed. Try to use either inhaler or breathing treatments. Use cough medication as prescribed. Nothing to indicate influenza or pneumonia at this time. Recheck with PCP if not improving the next 3 to 5 days. Return for any worsening, alarming symptoms, difficulty breathing or concerns sooner if needed Discharge Data Discharge Date/Time-TO BE ENTERED AT DEPARTURE: 01/21/19 12:00 Medical Decision Making Is a 48-year-old patient who presents to the emergency room today for 4 days of illness. Patient reports cough which is nonproductive however is associated with wheezing intermittently somewhat relieved with inhalers transiently at home. Patient denies chest or back pain. Patient denies production of cough. Patient denies fevers but does admit to chills. Patient does report associated nasal congestion, minimal sore throat. No voice change or trismus. Patient admits to chronic neck and back pain which is unchanged, somewhat worse after coughing. No associated body ache. Patient does report a posttussive gagging without emesis. Mild nausea noted yesterday which resolved since. No associated bowel changes specifically no diarrhea. No abdominal pain. Has been eating and drinking without difficulty. Plan of care includes trial of nebulizer treatment as well as chest x-ray to rule out pneumonia as patient has a specific concern for this as he does have a history of pneumonia in the past. Patient's x-ray does not reveal pneumonia at this time. Likely patient is experiencing viral symptoms. This was discussed at length with the patient. We will treat appropriately for bronchitis and encouraged conservative treatments. Patient agrees with plan of care. Patient did feel significantly relieved after breathing treatment and is requesting additional medication for nebulizer. Tubing was supplied to the patient. Tessalon Perles also provided for symptomatic relief. Alarming signs and symptoms for return were discussed. Encouraged recheck with PCP if not improving the next 3 to 5 days. Signs of secondary infection discussed. The patient was stable and requested discharge. Prior to discharge, my usual and customary return precautions were reviewed with the patient - this included follow-up instructions and reasons to return to the Emergency Department if conditions worsens, does not improve as expected, or other new concerns arise. HPI General Date/Time Provider Initiated Documentation: 01/21/19 10:35 . HPI Narrative: Is a 48-year-old patient who presents to the emergency room today for complaints of cough which is nonproductive for the last 4 days. Patient reports mild nasal congestion. Minimal sore throat. Cough again nonproductive, associated with wheezing and coughing fits. Has been using his inhaler at home with mild temporary symptomatic relief. Patient reports posttussive gagging and mild nausea yesterday with no active vomiting. Patient denies diarrhea or abdominal pain. Patient has chronic neck and back pain but otherwise denies any body aches. Denies fevers. Mild chills present. Patient has been eating and drinking without difficulty. Patient does have a history of bronchitis as well as pneumonia and is concerned with the potential of pneumonia. Patient denies difficulty breathing or shortness of breath at this time. Mild worsening of cough when laying flat. Denies any fluid accumulating in his legs. No active chest pain. Related Data Home Medications Medication Instructions Recorded Confirmed acetaminophen [Tylenol Arthritis 650 mg PO BID 11/13/12 12/10/18 Pain] multivitamin [Daily Value] 1 ea PO DAILY 06/14/16 12/10/18 vitamin B complex [B Complete] 1 ea PO DAILY 06/14/16 12/10/18 Medical Marijuana 1 ea PO PRN 05/16/17 12/10/18 propranolol 20 mg PO BID 05/16/17 12/10/18 loratadine-pseudoephedrine 1 tab-cap PO daily prn PRN tab-cap 06/27/17 12/10/18 [Claritin-D 24 Hour] amlodipine 10 mg PO HS 11/20/17 12/10/18 nortriptyline 50 mg capsule 100 mg PO QHS 30 Days #60 cap 09/05/18 10/17/18 tizanidine 4 mg tablet 4 - 8 mg PO QHS PRN 30 Days #60 tab 11/12/18 12/10/18 albuterol sulfate 2.5 mg IH Q6H PRN #75 ml 01/21/19 benzonatate [Tessalon Perles] 100 mg PO TID PRN #14 cap 01/21/19 Previous Rx's Medication Instructions Recorded nortriptyline 50 mg capsule 100 mg PO QHS 30 Days #60 cap 09/05/18 tizanidine 4 mg tablet 4 - 8 mg PO QHS PRN 30 Days #60 tab 11/12/18 albuterol sulfate 2.5 mg IH Q6H PRN #75 ml 01/21/19 benzonatate [Tessalon Perles] 100 mg PO TID PRN #14 cap 01/21/19 Allergies Allergy/AdvReac Type Severity Reaction Status Date / Time gabapentin AdvReac Severe Visual Verified 01/21/19 10:37 Disturbances duloxetine [From Cymbalta] AdvReac Intermediate Facial Verified 01/21/19 10:37 tic, trouble swallowing pregabalin [From Lyrica] AdvReac Intermediate Verified 01/21/19 10:37 General Stated Complaint: RespSymp LOLA: 3 Review of Systems All systems reviewed & are unremarkable except as noted in HPI and below Constitutional Constitutional: Reports chills, Denies fatigue, Denies fever(s), Denies headache(s) and Reports malaise ENT Ears, Nose, Mouth, and Throat: Denies vertigo, Denies dizziness, Denies headache(s), Reports nasal congestion, Denies sinus pain, Denies sinus pressure and Reports sore throat Cardiovascular Cardiovascular: Denies dyspnea and Denies dyspnea on exertion Respiratory Respiratory: Reports chest congestion, Reports cough, Denies dyspnea, Denies dyspnea on exertion, Denies stridor and Reports wheezing Gastrointestinal Gastrointestinal: Denies abdominal pain, Reports nausea and Denies vomiting Musculoskeletal Musculoskeletal: Denies myalgias Neurologic Neurologic: Denies vertigo, Denies dizziness and Denies headache(s) Endocrine Endocrine: Denies fatigue Allergic/Immunologic Allergic/Immunologic: Reports wheezing [facility] Medical History He's palsy (Acute) Chronic back pain Hemorrhoids that prolapse with straining, but retract spontaneously Inguinal hernia (Acute) bilateral Legally blind Macular degeneration Social History Smoking/Tobacco Use Status: Former Tobacco Use Alcohol Intake: current Alcohol Intake frequency: a few times a month Alcohol type: beer Drug use: Daily Substance use type: does not use Do you feel safe at home: Yes Do you feel safe in your relationship?: Yes Exam Narrative Exam Narrative: CONST: Healthy appearing patient, in no acute distress. Well hydrated. Alert and alert. HENMT: Head nomocephalic, normal to inspection. Atraumatic. Hearing grossly normal. TMs appear normal bilaterally. Mild pharyngeal erythema present. EYES: General normal appearance. Alignment normal. Eyelids normal. Conjunctiva normal. NECK: Normal visual inspection. FROM. Trachea midline. No Midline tenderness. No cervical lymphadenopathy present CHEST: Normal insepection of the chest. RESP: Normal respiratory effort. Speaking full sentences. No cough. No audible wheezing. No retractions. Breath sounds are clear and equal bilaterally. No rhonchi, rales or wheezing CARDIO: No JVD. Regular rate and rhythm no murmurs. Course Vital Signs Vital signs: Vital Signs Temperature 36.7 C 01/21/19 10:34 Pulse 87 01/21/19 10:34 Blood Pressure 149/98 H 01/21/19 10:34 Pulse Oximetry 96 01/21/19 10:34 Temperature 36.7 C 01/21/19 10:34 Temperature Source Skin 01/21/19 10:34 Pulse 87 01/21/19 10:34 Respiratory Effort 01/21/19 10:48 Respiratory Depth Normal 01/21/19 10:40 Blood Pressure 149/98 H 01/21/19 10:34 Blood Pressure Position Sitting 01/21/19 10:34 Pulse Oximetry 96 01/21/19 10:34 Oxygen Delivery Method Room Air 01/21/19 10:34 Oxygen Flow Rate 0 01/21/19 10:34 Pain Level 4 01/21/19 10:34 Lab/Test Results Lab/Test Results: 01/21/19 10:47 Nasopharynx Influenza Types A,B Antigen - Pending
--- NOTE | 2019-01-21 11:06 | DI.RAD_ITS ---
EXAM: XR CHEST 2V PA LATERAL CLINICAL HISTORY: cough TECHNIQUE: 2D digital imaging was performed. COMPARISON: No exams were available for comparison FINDINGS: The cardiac and mediastinal contours have a normal appearance. The lungs are well inflated and clear . No infiltrate, effusion or pneumothorax is seen. No spine or rib fracture is identified. IMPRESSION: Negative chest x-ray.
[2019-01-21] MEDS: Albuterol/Ipratropium 3 ML UPD VIAL UPD (11:39)
[2019-01-21 11:58] VITALS: BP 144/92; PULSE 68; RESP 14; TEMP 36.7; O2SAT 97
[2019-01-21 12:02] VITALS: PULSE 68; RESP 14; O2SAT 97
== END 2019-01-21 12:00 | disposition home or self-care (01) ==
PROVIDERS: Emergency Provider Physician Assistant; PCP General Practice
DX: J20.8 Acute bronchitis due to other specified organisms
CPT/HCPCS: 87449; 93005; 99284; 71046; 93010; J7620

== ENCOUNTER 2019-03-09 00:28 | Outpatient (CLI) | payer MEDICARE, SELFPAY ==
[2019-03-09 10:22] LABS: ALT 31 U/L (16-63); AST 16 U/L (15-37); Alkaline Phosphatase 66 U/L (46-116); BUN 12 mg/dL (7-18); Bilirubin, Total 0.5 mg/dL (0.2-1.0); CREATININE 0.96 mg/dL (0.70-1.30); Calcium 8.5 mg/dL (8.5-10.1); Calculated LDL 144 mg/dL (<100); Chloride 104 mmol/L (98-107); Cholesterol 210 mg/dL (<200); Glucose 102 mg/dL (74-106); HDL Cholesterol 43 mg/dL (40-60); Potassium 4.4 mmol/L (3.5-5.1); Sodium 142 mmol/L (136-145); Total Protein 6.7 g/dL (6.4-8.2); Triglyceride 115 mg/dL (<150)
== END 2019-03-09 00:48 ==
PROVIDERS: PCP Family Medicine; Visit Provider Family Medicine
DX: I10 Essential (primary) hypertension (principal); Z13.6 Encounter for screening for cardiovascular disorders
CPT/HCPCS: 36415; 80053; 80061

== ENCOUNTER 2019-04-01 13:11 | Outpatient (REF) | payer MEDICARE, SELFPAY ==
[2019-04-03 14:36] LABS: 2-Hydroxy Ethyl Flurazepam Not Detected ng/mL (Cutoff: 10); 6-monoacetylmorphine Not Detected ng/mL (Cutoff: 25); Alpha-Hydroxy Midazolam Not Detected ng/mL (Cutoff: 10); Alpha-Hydroxy Triazolam Not Detected ng/mL (Cutoff: 10); Alpha-Hydroxyalprazolam Not Detected ng/mL (Cutoff: 10); Alpha-OH-alprazolam Glucuronid Not Detected ng/mL (Cutoff: 50); Alprazolam Not Detected ng/mL (Cutoff: 10); Amphetamines Negative ng/mL (Cutoff: 500); Barbiturates Negative ng/mL (Cutoff: 200); Buprenorphine Not Detected ng/mL (Cutoff: 5); Chlordiazepoxide Not Detected ng/mL (Cutoff: 10); Clobazam Not Detected ng/mL (Cutoff: 10); Clonazepam Not Detected ng/mL (Cutoff: 10); Cocaine Negative ng/mL (Cutoff: 150); Codeine Not Detected ng/mL (Cutoff: 25); Comment Normal; Diazepam Not Detected ng/mL (Cutoff: 10); Dihydrocodeine Not Detected ng/mL (Cutoff: 25); EDDP Not Detected ng/mL (Cutoff: 25); Fentanyl Not Detected ng/mL (Cutoff: 2); Flurazepam Not Detected ng/mL (Cutoff: 10); Hydrocodone Not Detected ng/mL (Cutoff: 25); Hydromorphone Not Detected ng/mL (Cutoff: 25); Hydromorphone-3-beta-glucuroni Not Detected ng/mL (Cutoff: 100); Lorazepam Not Detected ng/mL (Cutoff: 10); Lorazepam Glucuronide Not Detected ng/mL (Cutoff: 50); Meperidine Not Detected ng/mL (Cutoff: 25); Methadone Not Detected ng/mL (Cutoff: 25); Midazolam Not Detected ng/mL (Cutoff: 10); Morphine Not Detected ng/mL (Cutoff: 25); N-Desmethylclobazam Not Detected ng/mL (Cutoff: 200); N-desmethyltapentadol Not Detected ng/mL (Cutoff: 50); Naloxone Not Detected ng/mL (Cutoff: 25); Norbuprenorphine Not Detected ng/mL (Cutoff: 5); Norfentanyl Not Detected ng/mL (Cutoff: 2); Norhydrocodone Not Detected ng/mL (Cutoff: 25); Normeperidine Not Detected ng/mL (Cutoff: 25); Noroxycodone Not Detected ng/mL (Cutoff: 25); Noroxymorphone Not Detected ng/mL (Cutoff: 25); O-desmethyltramadol Present ng/mL (Cutoff: 25); Oxazepam Glucuronide Not Detected ng/mL (Cutoff: 50); Phencyclidine Negative ng/mL (Cutoff: 25); Prazepam Not Detected ng/mL (Cutoff: 10); Propoxyphene Not Detected ng/mL (Cutoff: 25); Specific Gravity 1.015; Tapentadol Not Detected ng/mL (Cutoff: 25); Temazepam Not Detected ng/mL (Cutoff: 10); Temazepam Glucuronide Not Detected ng/mL (Cutoff: 50); Tetrahydrocannabinol Negative ng/mL (Cutoff: 50); Tramadol Present ng/mL (Cutoff: 25); Triazolam Not Detected ng/mL (Cutoff: 10); Zolpidem Phenyl-4-Carboxy acid Not Detected ng/mL (Cutoff: 10); pH 6.1
== END 2019-04-01 13:31 ==
LOC: LBN 13:11
PROVIDERS: PCP Family Medicine; Visit Provider Nurse Practitioner Family
DX: G89.29 Other chronic pain (principal); Z79.891 Long term (current) use of opiate analgesic
CPT/HCPCS: 80307; 80347; 80364

== ENCOUNTER → 2019-04-19 10:44 | Outpatient (BNVA) | payer MEDICARE, SELFPAY | PROVIDERS: PCP Family Medicine; Referring Provider Family Medicine; Visit Provider Physical Therapy Assistant | DX: Z12.11 Encounter for screening for malignant neoplasm of colon (principal); I10 Essential (primary) hypertension ==

== ENCOUNTER 2019-06-24 13:32 | Outpatient (REF) | payer MEDICARE, SELFPAY ==
[2019-06-30 03:13] LABS: 2-Hydroxy Ethyl Flurazepam Not Detected ng/mL (Cutoff: 10); 6-monoacetylmorphine Not Detected ng/mL (Cutoff: 25); Alpha-Hydroxy Midazolam Not Detected ng/mL (Cutoff: 10); Alpha-Hydroxy Triazolam Not Detected ng/mL (Cutoff: 10); Alpha-Hydroxyalprazolam Not Detected ng/mL (Cutoff: 10); Alpha-OH-alprazolam Glucuronid Not Detected ng/mL (Cutoff: 50); Alprazolam Not Detected ng/mL (Cutoff: 10); Amphetamines Negative ng/mL (Cutoff: 500); Barbiturates Negative ng/mL (Cutoff: 200); Buprenorphine Not Detected ng/mL (Cutoff: 5); Chlordiazepoxide Not Detected ng/mL (Cutoff: 10); Clobazam Not Detected ng/mL (Cutoff: 10); Clonazepam Not Detected ng/mL (Cutoff: 10); Cocaine Negative ng/mL (Cutoff: 150); Codeine Not Detected ng/mL (Cutoff: 25); Comment Normal; Creatinine, U 188.7 mg/dL; Diazepam Not Detected ng/mL (Cutoff: 10); Dihydrocodeine Not Detected ng/mL (Cutoff: 25); EDDP Not Detected ng/mL (Cutoff: 25); Fentanyl Not Detected ng/mL (Cutoff: 2); Flurazepam Not Detected ng/mL (Cutoff: 10); Hydrocodone Not Detected ng/mL (Cutoff: 25); Hydromorphone Not Detected ng/mL (Cutoff: 25); Hydromorphone-3-beta-glucuroni Not Detected ng/mL (Cutoff: 100); Lorazepam Not Detected ng/mL (Cutoff: 10); Lorazepam Glucuronide Present ng/mL (Cutoff: 50); Meperidine Not Detected ng/mL (Cutoff: 25); Methadone Not Detected ng/mL (Cutoff: 25); Midazolam Not Detected ng/mL (Cutoff: 10); Morphine Not Detected ng/mL (Cutoff: 25); N-Desmethylclobazam Not Detected ng/mL (Cutoff: 200); N-desmethyltapentadol Not Detected ng/mL (Cutoff: 50); Naloxone Not Detected ng/mL (Cutoff: 25); Norbuprenorphine Not Detected ng/mL (Cutoff: 5); Norfentanyl Not Detected ng/mL (Cutoff: 2); Norhydrocodone Not Detected ng/mL (Cutoff: 25); Normeperidine Not Detected ng/mL (Cutoff: 25); Noroxycodone Not Detected ng/mL (Cutoff: 25); Noroxymorphone Not Detected ng/mL (Cutoff: 25); O-desmethyltramadol Present ng/mL (Cutoff: 25); Oxazepam Glucuronide Not Detected ng/mL (Cutoff: 50); Phencyclidine Negative ng/mL (Cutoff: 25); Prazepam Not Detected ng/mL (Cutoff: 10); Propoxyphene Not Detected ng/mL (Cutoff: 25); Specific Gravity 1.011; Tapentadol Not Detected ng/mL (Cutoff: 25); Temazepam Not Detected ng/mL (Cutoff: 10); Temazepam Glucuronide Not Detected ng/mL (Cutoff: 50); Tetrahydrocannabinol Negative ng/mL (Cutoff: 50); Tramadol Present ng/mL (Cutoff: 25); Triazolam Not Detected ng/mL (Cutoff: 10); Zolpidem Phenyl-4-Carboxy acid Not Detected ng/mL (Cutoff: 10)
== END 2019-06-24 13:52 ==
LOC: LBN 13:32
PROVIDERS: PCP Family Medicine; Referring Provider Surgery; Visit Provider Nurse Practitioner Family
DX: G89.29 Other chronic pain (principal); Z79.891 Long term (current) use of opiate analgesic
CPT/HCPCS: 80307; 80347; 80364

== ENCOUNTER 2019-07-22 08:04 | Day surgery (SDC) | payer MEDICARE, SELFPAY ==
--- NOTE | 2019-07-22 07:05 | HPE_ITS ---
Date of service: 07/22/19 Time of Service: 08:53 Assessment and Plan Assessment and plan (1) Encounter for screening colonoscopy: Status: Acute Assessment and plan: A\\ The patient is here for Colonoscopy pre-op. He denies a family history of colon cancer. He does report a Maternal Grandfather whom had polyps on Colonoscopy. He has not had any bowel habit changes. P\\ Colonoscopy under sedation -Discussed colonoscopy bowel prep as well as the procedure. Discussed possible complications of the procedure to include bleeding, pain, perforation, missed small lesion/polyp, sore throat, aspiration and adverse reaction to the medications. Questions were answered to patient?s satisfaction. No guarantees were implied or given. History of Present Illness Narrative: 48 y/o male with history of HTN, Grapevine Palsy, asthma, oral HSV, anxiety and agoraphobia presents for his first colonoscopy screening pre-op. He denies a family history of colon cancer. He does report a Maternal Grandfather whom had polyps on Colonoscopy. He denies any changes in bowel habits including bloody or black tarry stools, abdominal pain, diarrhea or constipation. He denies constitutional symptoms. Denies use of marijuana or any other recreational or illegal drugs. He does have a marijuana card, however he states he has not been using it. He denies chest pain, palpitations, dyspnea or dyspnea with exertion. He denies prior history or family history of adverse reactions or complications with anesthesia. No changes since he was seen in the office Review of Systems Constitutional Constitutional: Denies fever(s) Cardiovascular Cardiovascular: Denies chest pain, Denies chest pain at rest, Denies irregular heart rhythm, Denies palpitations, Denies dyspnea and Denies dyspnea on exertion Respiratory Respiratory: Denies cough, Denies dyspnea and Denies dyspnea on exertion Endocrine Endocrine: Denies palpitations [facility] Family History (Updated 02/22/19 @ 10:12 by Tamica Ramos) Father Heart disease Hypertension PTSD (post-traumatic stress disorder) Anxiety Mother Diabetes Heart disease Social History Smoking/Tobacco Use Status: Former Tobacco Use Quit Date: 07/07/13 Tobacco: How many years used: 5 Alcohol Intake: current Alcohol Intake frequency: a few times a month Alcohol type: beer Drug use: Daily Substance use type: does not use Details: medical marijuana suspended at this time 6/12/20 Adopted: No Caregiver/Support person: No Foster care: No Household members: none Housing: house Do you need help understanding health information?: Rarely current occupation: Disabled Sexually active: No Do you think of yourself as: straight/heterosexual Current gender identity: male Do you feel safe at home: Yes Do you feel safe in your relationship?: Yes Meds Home Medications and Allergies Home Medications Medication Instructions Recorded Confirmed Type multivitamin [Daily Value] 1 ea PO DAILY 06/14/16 07/22/19 History vitamin B complex [B Complete] 1 ea PO DAILY 06/14/16 07/22/19 History Medical Marijuana 1 ea PO PRN 05/16/17 05/14/19 History propranolol 20 mg PO BID 05/16/17 07/22/19 History loratadine-pseudoephedrine 1 tab-cap PO daily prn PRN tab-cap 06/27/17 07/22/19 History [Claritin-D 24 Hour] amlodipine 10 mg PO HS 11/20/17 07/22/19 History albuterol sulfate 2.5 mg IH Q6H PRN #75 ml 01/21/19 07/22/19 Rx acetaminophen 500 mg tablet 1,000 mg PO BID PRN tab 02/05/19 07/22/19 History tizanidine 4 mg tablet 4 - 8 mg PO QHS PRN tab 03/01/19 07/22/19 History diclofenac sodium 1 % topical gel 4 gm TP QID PRN 6 Days #100 gm 03/06/19 07/22/19 Rx atorvastatin 40 mg tablet 40 mg PO QHS #90 tab 03/29/19 07/22/19 Rx naloxone 4 mg/actuation nasal spray 4 mg WOODY Q2-3M PRN #2 each 05/07/19 07/22/19 Rx lorazepam 0.5 mg tablet 0.5 mg PO TID PRN #28 tab MDD 1.5 06/14/19 07/22/19 Rx mg triamcinolone acetonide 0.1 % 1 applic TP TID PRN #80 gm 06/14/19 07/22/19 Rx topical cream tramadol 50 mg tablet 50 mg PO BID PRN 28 Days #56 tab 06/24/19 07/22/19 Rx MDD 2 tablets/day albuterol sulfate [ProAir HFA] 2 puff INHALATION PRN PRN 07/19/19 07/22/19 History meloxicam 7.5 mg PO BID 07/19/19 07/22/19 History nortriptyline 100 mg PO BID 07/19/19 07/22/19 History valacyclovir 1,000 mg PO DAILY PRN 07/19/19 07/22/19 History Allergies Allergy/AdvReac Type Severity Reaction Status Date / Time gabapentin AdvReac Severe Visual Verified 06/24/19 13:03 Disturbances duloxetine [From Cymbalta] AdvReac Intermediate Facial Verified 06/24/19 13:03 tic, trouble swallowing pregabalin [From Lyrica] AdvReac Intermediate facial tic Verified 06/24/19 13:03 sertraline [From Zoloft] AdvReac Intermediate nighttime Verified 06/24/19 13:03 paranoia, confusion buspirone AdvReac increased Verified 06/24/19 13:03 agitation Exam Const General: cooperative, comfortable and no acute distress [facility] Head: normocephalic and atraumatic Resp Effort & Inspection: normal respiratory effort Auscultation: clear to auscultation bilaterally Cardio Rate: regular rate Rhythm: regular rhythm Heart Sounds: no gallops, no murmurs and no rubs
--- NOTE | 2019-07-22 07:09 | W.COLOREPORT ---
Date of service: 07/22/19 Time of Service: 09:17 Colonoscopy Report Date of procedure: 07/22/19 Pre-op diagnosis general: Colon Cancer Screening Post-op diagnosis procedure note: other (Diverticulosis and polyps) Procedure: Colonoscopy with polypectomy Surgeon: Paula Nash Anesthesia proc note operative: other (General/ ASA 2/Seymour Pablo CRNA) Estimated blood loss (mL): 3 Pathology: other (Sigmoid polyps x2) Complications: None Disposition: same day Indications: A\\ The patient is here for Colonoscopy pre-op. He denies a family history of colon cancer. He does report a Maternal Grandfather whom had polyps on Colonoscopy. He has not had any bowel habit changes. P\\ Colonoscopy under sedation -Discussed colonoscopy bowel prep as well as the procedure. Discussed possible complications of the procedure to include bleeding, pain, perforation, missed small lesion/polyp, sore throat, aspiration and adverse reaction to the medications. Questions were answered to patient?s satisfaction. No guarantees were implied or given. Prep: Miralax/Dulcolax Procedure Start Time: :17 Procedure End Time: :49 Retraction Time: 21 minutes Findings: 2 small, most likely benign polyps and mild diverticuolosis Procedure Description: After informed consent was obtained the patient was taken to the procedure room and placed in a left decubitous position. Monitors were applied and a time out was done. The patients name, date of , procedure, allergies to medications and metal in their body was reviewed. The patient was then sedated. Once sedated and comfortable a rectal exam was done. External exam was normal. Internal exam revealed a normal sphincter tone and no palpable masses. The prostate felt smooth. The scope was then introduced and retro-flexed. No internal hemorrhoids, masses or polyps were identified on retro-flexion. The scope was then advanced to the cecum without difficulty. The ileocecal valve and appendiceal orifice were identified. The prep was good. The scope was then slowly retracted over 21 minutes back into the rectum. Polyps were removed in the sigmoid colon with cold forceps. There was mild diverticulosis noted in the sigmoid colon. The scope was removed and the patient was woken up and taken back to Same day surgery in stable condition. The patient tolerated the procedure well and there were no immediate complications. Follow up: The patient should follow up in 10 years, most likely, unless his pathology shows an adenoma or unless they develop changes in bowel habits or other new gastrointestinal complaints.
--- NOTE | 2019-07-22 07:09 | W.PM.DSUDISC ---
Discharge Plan Disposition Patient Disposition: HOME Condition: Good Discharge Details Reason For Visit: Colon cancer screening Attending Provider: Paula Nash Primary Care Provider: Eriberto Freeman Home Meds and New Rx's Prescriptions: Continued tizanidine 4 mg tablet 4 - 8 mg PO QHS PRN (Reason: muscle spasticity) RF: 0 atorvastatin 40 mg tablet 40 mg PO QHS Qty: 90 RF: 3 Narcan 4 mg/actuation spray,non-aerosol 4 mg WOODY Q2-3M PRN (Reason: opioid overdose) Qty: 2 RF: 0 triamcinolone acetonide 0.1 % cream 1 applic TP TID PRN (Reason: pruritis) Qty: 80 RF: 3 lorazepam 0.5 mg tablet 0.5 mg PO TID MDD 1.5 mg PRN (Reason: anxiety/panic attacks) Qty: 28 RF: 0 acetaminophen 500 mg tablet 1,000 mg PO BID PRNRF: 0 diclofenac sodium 1 % gel 4 gm TP QID PRN (Reason: back pain) 6 Days Qty: 100 RF: 11 tramadol 50 mg tablet 50 mg PO BID MDD 2 tablets/day PRN (Reason: pain) 28 Days Qty: 56 RF: 0 multivitamin [Daily Value] 1 EACH tablet 1 ea PO DAILY RF: 0 vitamin B complex [B Complete] 1 EACH tablet 1 ea PO DAILY RF: 0 propranolol 10 MG tablet 20 mg PO BID RF: 0 medical marijuana 1 ea PO PRNRF: 0 Hold Instructions: Home Medication placed on hold at Doctor's office loratadine-pseudoephedrine [Claritin-D 24 Hour] 1 EACH tablet extended release 24 hr 1 tab-cap PO daily prn PRNRF: 0 amlodipine 10 mg Tablet 10 mg PO HS RF: 0 albuterol sulfate [ProAir HFA] 90 mcg/actuation Hfa Aerosol Inhaler 2 puff INHALATION PRN PRNRF: 0 valacyclovir 1 gram tablet 1,000 mg PO DAILY PRNRF: 0 meloxicam 15 mg tablet 7.5 mg PO BID RF: 0 nortriptyline 50 mg capsule 100 mg PO BID RF: 0 albuterol sulfate 2.5 mg /3 mL (0.083 %) solution for nebulization 2.5 mg IH Q6H PRN (Reason: shortness of breath or wheezing) Qty: 75 RF: 0 Discontinued polyethylene glycol 3350 17 gram/dose powder 238 g PO ONCE Qty: 238 RF: 0 bisacodyl [Dulcolax (bisacodyl)] 5 mg tablet,delayed release (DR/EC) 5 mg PO ONCE Qty: 4 RF: 0 Discharge Instructions Instructions: Diverticulosis (DC), Colorectal Polyps (DC) Additional Instructions: Findings: 2 small polyps, most likely benign Diverticulosis Follow up: most likley 10 years unless one of the polyps is pre-malignant Please call if you develop: fevers >101.5 Nausea or Vomiting Abdominal pain that is not transient DAY SURGERY UNIT POST ENDOSCOPY INSTRUCTIONS 1. Because there will be medication in your system for the next 24 hours, you may feel a little sleepy. Your coordination will be affected. Therefore: a. Do not drive or operate dangerous equipment for 24 hours. b. Do not drink alcohol beverages for 24 hours (not even beer). c. Plan to go home and rest for the day. 2. Generally there are no restrictions on your activity after a day or so has gone by, but you may feel a bit fatigued for a few days. 3 After you arrive home you may have a light meal and return to a normal diet as you can tolerate it without feeling sick to your stomach. 4. After surgery, you may feel pain or discomfort. This should be only transient, but if it persists please contact your doctor. 5. If there are any questions regarding the findings of your procedure, please feel free to contact your doctor. 6. If you are unable to contact your doctor with a problem, contact the hospital at [phone]. 7. Continue all your regular medications unless directed otherwise. I understand the above instructions and have no questions. Signature of Patient or Responsible Adult Escort Date/Time Name of Responsible Adult Escort Signature of Nurse Date/Time Activity:: Activity as Tolerated Diet:: high fiber diet Discharge Orders Discharge Orders: Discharge Order (Routine); Ordered 07/22/19 Ordered By: Paula Nash DS: Diagnosis Discharge Diagnosis (1) Encounter for screening colonoscopy: Status: Acute
[2019-07-22 08:16] VITALS: BP 130/90; PULSE 74; RESP 16; TEMP 36.8; O2SAT 100
[2019-07-22] MEDS: Lactated Ringers 1,000 ML 80 ML IV (08:45)
--- NOTE | 2019-07-22 09:46 | BOWEL_PTH ---
PATIENT: Tyrell Love LOC: [facility] U#:[id number] AGE/SX: 48/M ROOM: RE07/22/[address]: Paula Nash MD : [id number] BED: DIS: 07/22/2019 SPEC #: [id number] RECD: 07/22/19 12:02 STATUS: BEVERLY REQ #: [id number] PANCHO: 07/22/19 09:[address]: Paula Nash DEPT: Surgical Specimen RECD BY: Brandy Red ENTERED: 07/22/19 12:02 SP TYPE: Bowel OTHR DR: Eriberto Freeman DO Tissues: 1 - BIOPSY BOWEL Procedures: GROSS AND MICRO LEVEL 4 Comments: [id number]
[2019-07-22 10:21] VITALS: BP 124/84; PULSE 62; RESP 16; TEMP 36.5; O2SAT 100
== END 2019-07-22 10:40 | disposition home or self-care (01) ==
LOC: SUR 08:04
PROVIDERS: PCP Family Medicine; Visit Provider Surgery
PROC: 0DJD8ZZ Inspection of Lower Intestinal Tract, Via Natural or Artificial Opening Endoscopic (ICD-10-PCS; CPT 45378; principal; 2019-07-22 09:00)
DX: Z12.11 Encounter for screening for malignant neoplasm of colon (principal); Z83.71 Family history of colonic polyps; K57.30 Diverticulosis of large intestine without perforation or abscess without bleeding; K63.5 Polyp of colon; I10 Essential (primary) hypertension
CPT/HCPCS: 45380; 88305; NC; J2001

== ENCOUNTER 2019-07-30 16:05 | Outpatient (REF) | payer MEDICARE, SELFPAY ==
[2019-07-31 02:11] LABS: COVID-19 RT-PCR UVMMC Result Negative (Negative)
== END 2019-07-30 16:25 ==
LOC: LBN 16:05
PROVIDERS: PCP Family Medicine; Visit Provider Internal Medicine
DX: J31.0 Chronic rhinitis (principal); Z03.818 Encounter for observation for suspected exposure to other biological agents ruled out
CPT/HCPCS: U0003

== ENCOUNTER 2019-09-16 12:04 | Outpatient (REF) | payer MEDICARE, SELFPAY ==
[2019-09-19 15:37] LABS: 2-Hydroxy Ethyl Flurazepam Not Detected ng/mL (Cutoff: 10); 6-monoacetylmorphine Not Detected ng/mL (Cutoff: 25); Alpha-Hydroxy Midazolam Not Detected ng/mL (Cutoff: 10); Alpha-Hydroxy Triazolam Not Detected ng/mL (Cutoff: 10); Alpha-Hydroxyalprazolam Not Detected ng/mL (Cutoff: 10); Alpha-OH-alprazolam Glucuronid Not Detected ng/mL (Cutoff: 50); Alprazolam Not Detected ng/mL (Cutoff: 10); Amphetamines Negative ng/mL (Cutoff: 500); Barbiturates Negative ng/mL (Cutoff: 200); Buprenorphine Not Detected ng/mL (Cutoff: 5); Chlordiazepoxide Not Detected ng/mL (Cutoff: 10); Clobazam Not Detected ng/mL (Cutoff: 10); Clonazepam Not Detected ng/mL (Cutoff: 10); Cocaine Negative ng/mL (Cutoff: 150); Codeine Not Detected ng/mL (Cutoff: 25); Comment Normal; Creatinine, U 75.3 mg/dL; Diazepam Not Detected ng/mL (Cutoff: 10); Dihydrocodeine Not Detected ng/mL (Cutoff: 25); EDDP Not Detected ng/mL (Cutoff: 25); Fentanyl Not Detected ng/mL (Cutoff: 2); Flurazepam Not Detected ng/mL (Cutoff: 10); Hydrocodone Not Detected ng/mL (Cutoff: 25); Hydromorphone Not Detected ng/mL (Cutoff: 25); Hydromorphone-3-beta-glucuroni Not Detected ng/mL (Cutoff: 100); Lorazepam Not Detected ng/mL (Cutoff: 10); Lorazepam Glucuronide Present ng/mL (Cutoff: 50); Meperidine Not Detected ng/mL (Cutoff: 25); Methadone Not Detected ng/mL (Cutoff: 25); Midazolam Not Detected ng/mL (Cutoff: 10); Morphine Not Detected ng/mL (Cutoff: 25); N-Desmethylclobazam Not Detected ng/mL (Cutoff: 200); N-desmethyltapentadol Not Detected ng/mL (Cutoff: 50); Naloxone Not Detected ng/mL (Cutoff: 25); Nitrites Negative; Norfentanyl Not Detected ng/mL (Cutoff: 2); Norhydrocodone Not Detected ng/mL (Cutoff: 25); Normeperidine Not Detected ng/mL (Cutoff: 25); Noroxycodone Not Detected ng/mL (Cutoff: 25); Noroxymorphone Not Detected ng/mL (Cutoff: 25); O-desmethyltramadol Present ng/mL (Cutoff: 25); Oxazepam Glucuronide Not Detected ng/mL (Cutoff: 50); Phencyclidine Negative ng/mL (Cutoff: 25); Prazepam Not Detected ng/mL (Cutoff: 10); Propoxyphene Not Detected ng/mL (Cutoff: 25); Specific Gravity 1.012; Tapentadol Not Detected ng/mL (Cutoff: 25); Temazepam Not Detected ng/mL (Cutoff: 10); Temazepam Glucuronide Not Detected ng/mL (Cutoff: 50); Tetrahydrocannabinol Negative ng/mL (Cutoff: 50); Tramadol Present ng/mL (Cutoff: 25); Triazolam Not Detected ng/mL (Cutoff: 10); Zolpidem Phenyl-4-Carboxy acid Not Detected ng/mL (Cutoff: 10); pH 6.6
== END 2019-09-16 12:24 ==
LOC: LBN 12:04
PROVIDERS: PCP Family Medicine; Visit Provider Nurse Practitioner Family
DX: Z79.891 Long term (current) use of opiate analgesic (principal)
CPT/HCPCS: 80307; 80347; 80364

== ENCOUNTER 2019-11-01 02:18 | Outpatient (CLI) | payer MEDICARE, SELFPAY ==
[2019-11-01 15:39] LABS: TSH 3.15 uIU/mL (0.36-3.74)
[2019-11-02 15:34] LABS: ALT 45 U/L (16-63); AST 19 U/L (15-37); Albumin 4.7 g/dL (3.4-5.0); Alkaline Phosphatase 70 U/L (46-116); Anion Gap 8.6 mmol/L (3-11); BUN 17 mg/dL (7-18); Bilirubin, Total 0.3 mg/dL (0.2-1.0); CO2 25.4 mmol/L (21.0-32.0); CREATININE 1.18 mg/dL (0.70-1.30); Calcium 8.9 mg/dL (8.5-10.1); Chloride 102 mmol/L (98-107); Glucose 121 mg/dL (74-106); Potassium 3.6 mmol/L (3.5-5.1); Sodium 136 mmol/L (136-145); Total Protein 7.4 g/dL (6.4-8.2)
[2019-11-04 06:04] LABS: Vitamin D 25 Total 40.3 ng/ml (30-100)
[2019-11-04 18:03] LABS: Nortriptyline 100 ng/mL (70-170)
[2019-11-11 10:30] LABS: Misc Referral (MAYO) See Comments
== END 2019-11-01 02:38 ==
PROVIDERS: PCP Family Medicine; Visit Provider Nurse Practitioner Psychiatric/Mental Health
DX: F41.9 Anxiety disorder, unspecified (principal); Z51.81 Encounter for therapeutic drug level monitoring; Z79.899 Other long term (current) drug therapy
CPT/HCPCS: 36415; 80053; 80335; 80346; 82306; 82746; 84443

== ENCOUNTER 2019-12-16 13:53 | Outpatient (REF) | payer MEDICARE, SELFPAY ==
[2019-12-20 10:35] LABS: 2-Hydroxy Ethyl Flurazepam Not Detected ng/mL (Cutoff: 10); 6-monoacetylmorphine Not Detected ng/mL (Cutoff: 25); Alpha-Hydroxy Midazolam Not Detected ng/mL (Cutoff: 10); Alpha-Hydroxy Triazolam Not Detected ng/mL (Cutoff: 10); Alpha-Hydroxyalprazolam Not Detected ng/mL (Cutoff: 10); Alpha-OH-alprazolam Glucuronid Not Detected ng/mL (Cutoff: 50); Alprazolam Not Detected ng/mL (Cutoff: 10); Amphetamines Negative ng/mL (Cutoff: 500); Barbiturates Negative ng/mL (Cutoff: 200); Buprenorphine Not Detected ng/mL (Cutoff: 5); Chlordiazepoxide Not Detected ng/mL (Cutoff: 10); Clobazam Not Detected ng/mL (Cutoff: 10); Clonazepam Not Detected ng/mL (Cutoff: 10); Cocaine Negative ng/mL (Cutoff: 150); Codeine Not Detected ng/mL (Cutoff: 25); Comment Normal; Diazepam Not Detected ng/mL (Cutoff: 10); Dihydrocodeine Not Detected ng/mL (Cutoff: 25); EDDP Not Detected ng/mL (Cutoff: 25); Fentanyl Not Detected ng/mL (Cutoff: 2); Flurazepam Not Detected ng/mL (Cutoff: 10); Hydrocodone Not Detected ng/mL (Cutoff: 25); Hydromorphone Not Detected ng/mL (Cutoff: 25); Hydromorphone-3-beta-glucuroni Not Detected ng/mL (Cutoff: 100); Lorazepam Not Detected ng/mL (Cutoff: 10); Lorazepam Glucuronide Present ng/mL (Cutoff: 50); Meperidine Not Detected ng/mL (Cutoff: 25); Methadone Not Detected ng/mL (Cutoff: 25); Midazolam Not Detected ng/mL (Cutoff: 10); Morphine Not Detected ng/mL (Cutoff: 25); N-Desmethylclobazam Not Detected ng/mL (Cutoff: 200); N-desmethyltapentadol Not Detected ng/mL (Cutoff: 50); Naloxone Not Detected ng/mL (Cutoff: 25); Norbuprenorphine Not Detected ng/mL (Cutoff: 5); Norfentanyl Not Detected ng/mL (Cutoff: 2); Norhydrocodone Not Detected ng/mL (Cutoff: 25); Normeperidine Not Detected ng/mL (Cutoff: 25); Noroxycodone Not Detected ng/mL (Cutoff: 25); Noroxymorphone Not Detected ng/mL (Cutoff: 25); O-desmethyltramadol Present ng/mL (Cutoff: 25); Oxazepam Glucuronide Not Detected ng/mL (Cutoff: 50); Phencyclidine Negative ng/mL (Cutoff: 25); Prazepam Not Detected ng/mL (Cutoff: 10); Propoxyphene Not Detected ng/mL (Cutoff: 25); Specific Gravity 1.007; Tapentadol Not Detected ng/mL (Cutoff: 25); Temazepam Not Detected ng/mL (Cutoff: 10); Temazepam Glucuronide Not Detected ng/mL (Cutoff: 50); Tetrahydrocannabinol Negative ng/mL (Cutoff: 50); Tramadol Present ng/mL (Cutoff: 25); Triazolam Not Detected ng/mL (Cutoff: 10); Zolpidem Phenyl-4-Carboxy acid Not Detected ng/mL (Cutoff: 10); pH 6.1
== END 2019-12-16 14:13 ==
LOC: LBN 13:53
PROVIDERS: PCP Family Medicine; Visit Provider Nurse Practitioner Family
DX: G89.29 Other chronic pain (principal); Z79.899 Other long term (current) drug therapy
CPT/HCPCS: 80307; 80347; 80364

== ENCOUNTER 2020-02-03 12:17 | Emergency (ER) | payer MEDICARE, SELFPAY ==
[2020-02-03 12:37] VITALS: BP 140/96; PULSE 90; RESP 20; TEMP 36.7; O2SAT 100
[2020-02-03] MEDS: Gelatin SPONGE 12-7 MM PKT 1 EACH TP (13:28)
--- NOTE | 2020-02-05 14:22 | NUR.NOTE ---
Nursing Note: Ion Wilcox NP called to say that there was not a provider note with this chart. Gisela Suarez MD notified. Aria Billy
--- NOTE | 2020-02-05 15:35 | W.ED.GENAD ---
Discharge Plan Disposition Patient Disposition: HOME Condition: Stable Discharge Details Clinical Impression: Laceration of thumb Primary Care Provider: Eriberto Freeman ED Provider: Sandra Suarez Home Meds and New Rx's Prescriptions: Continued atorvastatin 40 mg tablet 40 mg PO QHS Qty: 90 RF: 3 Narcan 4 mg/actuation spray,non-aerosol 4 mg WOODY Q2-3M PRN (Reason: opioid overdose) Qty: 2 RF: 0 triamcinolone acetonide 0.1 % cream 1 applic TP TID PRN (Reason: pruritis) Qty: 80 RF: 3 meloxicam 7.5 mg tablet 7.5 mg PO BID PRN (Reason: back pain) 30 Days Qty: 60 RF: 11 lorazepam 0.5 mg tablet 0.5 mg PO TID MDD 1.5 mg PRN (Reason: anxiety/panic attacks) Qty: 35 RF: 0 amlodipine 10 mg tablet 10 mg PO HS Qty: 90 RF: 3 acetaminophen 500 mg tablet 1,000 mg PO BID PRNRF: 0 diclofenac sodium 1 % gel 4 gm TP QID PRN (Reason: back pain) 6 Days Qty: 100 RF: 11 tizanidine 4 mg tablet 8 mg PO QHS PRN (Reason: muscle spasticity) 30 Days Qty: 60 RF: 11 tramadol 50 mg tablet 50 mg PO BID MDD 2 tablets/day PRN (Reason: pain) 28 Days Qty: 56 RF: 0 multivitamin [Daily Value] 1 EACH tablet 1 ea PO DAILY RF: 0 vitamin B complex [B Complete] 1 EACH tablet 1 ea PO DAILY RF: 0 medical marijuana 1 ea PO PRNRF: 0 Hold Instructions: Home Medication placed on hold at Doctor's office loratadine-pseudoephedrine [Claritin-D 24 Hour] 1 EACH tablet extended release 24 hr 1 tab-cap PO daily prn PRNRF: 0 propranolol 10 mg tablet 20 mg PO BID Qty: 180 RF: 3 albuterol sulfate [ProAir HFA] 90 mcg/actuation Hfa Aerosol Inhaler 2 puff INHALATION PRN PRNRF: 0 valacyclovir 1 gram tablet 1,000 mg PO DAILY PRNRF: 0 nortriptyline 50 mg capsule 50 mg PO TID RF: 0 albuterol sulfate 2.5 mg /3 mL (0.083 %) solution for nebulization 2.5 mg IH Q6H PRN (Reason: shortness of breath or wheezing) Qty: 75 RF: 0 Discharge Instructions Instructions: Laceration (ED) Additional Instructions: Please return immediately to the emergency department if you develop any new or worsening symptoms, if your condition does not improve as expected, or if you become otherwise concerned. It is extremely important that you call soon as possible to make an appointment to be seen in follow-up for this visit by your primary care doctor. Referrals: Eriberto Freeman DO [Primary Care Provider] - Discharge Data Discharge Date/Time-TO BE ENTERED AT DEPARTURE: 02/03/20 13:45 Medical Decision Making Tyrell Love is a 49 y/o man with h/o HTN, HLD, macular degeneration, asthma who presented to the ED with left thumb wound from pocketknife sustained 40 min [employer]. On exam Pt is well and non-toxic appearing. 1.5 cm avulsion wound left thumb palmar surface. Digit is NVI, tendon function intact. Wound closure not indicated. Exam/hx at this time not c/w significant neurologic/vascualr/tendon/bony injury. WOund irrigated copiously under pressure. Wound dressed with surgicel, gauze. I had a lengthy discussion with Patient regarding return to emergency department precautions, home care/wound care, and importance of outpatient follow-up. Pt verbalizes understanding of the plan and is amenable. Patient discharged to home with clear plan for outpatient follow-up. All questions were answered. Disposition decision was made weighing the risks and benefits of hospitalization versus outpatient treatment, the risk for further decompensation, and the patient's wishes. Medical Records Medical records reviewed: Yes I reviewed the patient's medical records. HPI General Mode of arrival: ambulatory. Date/Time Provider Initiated Documentation: 02/03/20 12:48. Limitations to Documentation: no limitations. Information obtained by: patient, RN notes reviewed and old records reviewed. HPI Narrative: Tyrell Love is a 49 y/o man with h/o asthma, HLD, HTN, macular degeneration presenting to the emergency department with lumb laceration. Pt reports that 40 min [employer] he was using a pocketknife when his hand slipped and he cut his left thumb. He reports bleeding stopped quickly with pressure. Denies any other injury. Denies prior symptoms, was previously in his usual state of health. Denies pain other than at site of wound, fever, v/d, numbness/tingling, weakness, rash. Unsure of last tetanus. Related Data Home Medications Medication Instructions Recorded Confirmed multivitamin [Daily Value] 1 ea PO DAILY 06/14/16 02/05/20 vitamin B complex [B Complete] 1 ea PO DAILY 06/14/16 02/05/20 Medical Marijuana 1 ea PO PRN 05/16/17 02/05/20 loratadine-pseudoephedrine 1 tab-cap PO daily prn PRN tab-cap 06/27/17 02/05/20 [Claritin-D 24 Hour] albuterol sulfate 2.5 mg IH Q6H PRN #75 ml 01/21/19 02/05/20 acetaminophen 500 mg tablet 1,000 mg PO BID PRN tab 02/05/19 02/05/20 diclofenac sodium 1 % topical gel 4 gm TP QID PRN 6 Days #100 gm 03/06/19 02/05/20 atorvastatin 40 mg tablet 40 mg PO QHS #90 tab 03/29/19 02/05/20 naloxone 4 mg/actuation nasal spray 4 mg WOODY Q2-3M PRN #2 each 05/07/19 02/05/20 triamcinolone acetonide 0.1 % 1 applic TP TID PRN #80 gm 06/14/19 02/05/20 topical cream albuterol sulfate [ProAir HFA] 2 puff INHALATION PRN PRN 07/19/19 02/05/20 valacyclovir 1,000 mg PO DAILY PRN 07/19/19 02/05/20 meloxicam 7.5 mg tablet 7.5 mg PO BID PRN 30 Days #60 tab 07/23/19 02/05/20 propranolol 10 mg tablet 20 mg PO BID #180 tab 08/26/19 02/05/20 lorazepam 0.5 mg tablet 0.5 mg PO TID PRN #35 tab MDD 1.5 09/23/19 02/05/20 mg nortriptyline 50 mg capsule 50 mg PO TID cap 10/21/19 02/05/20 tizanidine 4 mg tablet 8 mg PO QHS PRN 30 Days #60 tab 10/21/19 02/05/20 amlodipine 10 mg tablet 10 mg PO HS #90 tab 11/19/19 02/05/20 tramadol 50 mg tablet 50 mg PO BID PRN 28 Days #56 tab 01/13/20 02/05/20 MDD 2 tablets/day Previous Rx's Medication Instructions Recorded albuterol sulfate 2.5 mg IH Q6H PRN #75 ml 01/21/19 diclofenac sodium 1 % topical gel 4 gm TP QID PRN 6 Days #100 gm 03/06/19 atorvastatin 40 mg tablet 40 mg PO QHS #90 tab 03/29/19 naloxone 4 mg/actuation nasal spray 4 mg WOODY Q2-3M PRN #2 each 05/07/19 triamcinolone acetonide 0.1 % 1 applic TP TID PRN #80 gm 06/14/19 topical cream meloxicam 7.5 mg tablet 7.5 mg PO BID PRN 30 Days #60 tab 07/23/19 propranolol 10 mg tablet 20 mg PO BID #180 tab 08/26/19 lorazepam 0.5 mg tablet 0.5 mg PO TID PRN #35 tab MDD 1.5 09/23/19 mg tizanidine 4 mg tablet 8 mg PO QHS PRN 30 Days #60 tab 10/21/19 amlodipine 10 mg tablet 10 mg PO HS #90 tab 11/19/19 tramadol 50 mg tablet 50 mg PO BID PRN 28 Days #56 tab 01/13/20 MDD 2 tablets/day Allergies Allergy/AdvReac Type Severity Reaction Status Date / Time gabapentin AdvReac Severe Visual Verified 02/05/20 14:18 Disturbances duloxetine [From Cymbalta] AdvReac Intermediate Facial Verified 02/05/20 14:18 tic, trouble swallowing pregabalin [From Lyrica] AdvReac Intermediate facial tic Verified 02/05/20 14:18 sertraline [From Zoloft] AdvReac Intermediate nighttime Verified 02/05/20 14:18 paranoia, confusion buspirone AdvReac increased Verified 02/05/20 14:18 agitation General Stated Complaint: Laceration LOLA: 4 Review of Systems Narrative: Constitutional: denies fevers Eyes: denies eye pain ENT: denies ear pain, dental pain, sore throat Cardiovascular: denies chest pain Respiratory: denies SOB, cough GI: denies abdominal pain, vomiting, diarrhea : denies flank pain MSK: denies back pain, neck pain Skin: denies rash, reports skin wound Neuro: denies headaches, numbness, weakness [facility] Medical History Agoraphobia Anal fissure Anal or rectal pain Asthma He's palsy Bleeding hemorrhoids Cervical neuralgia Chronic back pain Chronic pain (06/15/16) 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 Diverticulitis Generalized anxiety disorder Hemorrhoids that prolapse with straining, but retract spontaneously Hyperlipidemia Aplington score 15% at age 48, started atorvastatin Hyperplastic colon polyp Hypertension Inguinal hernia Bilateral 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 Macular degeneration Panic attacks Pruritus ani Winter itch Surgical History H/O rectal sphincterotomy (11/23/17) and hemorrhoid banding, Dr Hernandez History of left inguinal hernia repair History of right inguinal hernia repair Family History Father Heart disease Hypertension PTSD (post-traumatic stress disorder) Anxiety Mother Diabetes Heart disease Social History Smoking/Tobacco Use Status: Former Tobacco Use Quit Date: 07/07/13 Tobacco: How many years used: 5 Smoking risk assessment performed?: Yes Alcohol Intake: current Alcohol Intake frequency: a few times a month Alcohol type: beer Drug use: Daily Substance use type: marijuana Details: medical marijuna per pt Adopted: No Caregiver/Support person: No Foster care: No Household members: none Housing: house Do you need help understanding health information?: Rarely current occupation: Disabled Sexually active: No Do you think of yourself as: straight/heterosexual Current gender identity: male Special todd needs: No Do you feel safe at home: Yes Do you feel safe in your relationship?: Yes Exam Narrative Exam Narrative: Constitutional: well and [id number], pleasant, conversing normally HENT: head atraumatic/normocephalic/normal inspection, mucous membranes moist Eyes: conjunctiva normal, sclera normal, pupils 3mm b/l Neck: no stridor, normal ROM, trachea midline Resp: normal work of breathing, speaking in full sentences Cardio: normal rate, normal rhythm, radial pulses intact b/l Skin: warm, dry, normal color, no rash Neuro: alert, not altered, grossly non-focal, normal tone Ext: moving all extremities equally. 1.5 cm superficial avulsion wound palmar surface of left 1st digit, minimal bleeding, no tendon or bone exposed. No bony TTP. FROM MCP joint and PIP joint left 1st digit without pain. Flexion/extension intact. Brisk cap refill. Distal sensation intact. No other wound to hand. Psych: normal mood, normal affect, normal behavior Course Vital Signs Vital signs: Vital Signs Temperature 36.7 C 02/03/20 12:37 Pulse 90 02/03/20 12:37 Respiratory Rate 20 02/03/20 12:37 Blood Pressure 140/96 H 02/03/20 12:37 Pulse Oximetry 100 02/03/20 12:37 Temperature 36.7 C 02/03/20 12:37 Temperature Source Oral 02/03/20 12:37 Pulse 90 02/03/20 12:37 Respiratory Rate 20 02/03/20 12:37 Respiratory Effort Non-Labored 02/03/20 12:42 Blood Pressure 140/96 H 02/03/20 12:37 Blood Pressure Position Sitting 02/03/20 12:37 Pulse Oximetry 100 02/03/20 12:37 Oxygen Delivery Method Room Air 02/03/20 12:37 Oxygen Flow Rate 0 02/03/20 12:37 Pain Level 3 02/03/20 13:37
== END 2020-02-03 13:45 | disposition home or self-care (01) ==
PROVIDERS: Emergency Provider Student in an Organized Health Care Education/Training Program; PCP Family Medicine
DX: S61.012A Laceration without foreign body of left thumb without damage to nail, initial encounter (principal); W26.0XXA Contact with knife, initial encounter; I10 Essential (primary) hypertension
CPT/HCPCS: 99282; 99283

== ENCOUNTER 2020-08-03 03:33 | Outpatient (CLI) | payer MEDICARE, SELFPAY ==
[2020-08-03 11:50] LABS: ALT 53 U/L (16-63); AST 24 U/L (15-37); Albumin 4.5 g/dL (3.4-5.0); Alkaline Phosphatase 69 U/L (46-116); Anion Gap 10.7 mmol/L (3-11); BUN 11 mg/dL (7-18); Bilirubin, Total 0.3 mg/dL (0.2-1.0); CO2 23.3 mmol/L (21.0-32.0); Calcium 8.6 mg/dL (8.5-10.1); Chloride 105 mmol/L (98-107); Glucose 119 mg/dL (74-106); Potassium 4.5 mmol/L (3.5-5.1); Sodium 139 mmol/L (136-145); TSH 1.71 uIU/mL (0.36-3.74); Total Protein 7.5 g/dL (6.4-8.2)
[2020-08-07 15:02] LABS: Nortriptyline 87 ng/mL (70-170)
== END 2020-08-03 03:34 | disposition home or self-care (01) ==
LOC: LBO 03:33
PROVIDERS: PCP Family Medicine; Visit Provider Nurse Practitioner Psychiatric/Mental Health
DX: F41.9 Anxiety disorder, unspecified (principal); Z79.899 Other long term (current) drug therapy; Z51.81 Encounter for therapeutic drug level monitoring
CPT/HCPCS: 36415; 80053; 80061; 80335; 83036; 84443

== ENCOUNTER 2021-08-30 16:51 | Outpatient (REF) | payer MEDICARE, SELFPAY ==
[2021-09-01 11:20] LABS: COVID-19 RT-PCR UVMMC Result Negative (Negative)
== END 2021-08-30 16:52 | disposition home or self-care (01) ==
LOC: LBN 16:51
PROVIDERS: PCP Family Medicine; Visit Provider Nurse Practitioner Family
DX: Z20.822 Contact with and (suspected) exposure to COVID-19 (principal)
CPT/HCPCS: U0003

== ENCOUNTER 2022-01-11 13:09 | Outpatient (CLI) | payer MEDICARE, SELFPAY ==
--- NOTE | 2022-01-11 13:00 | RT.EKG_ITS ---
APPROVED REPORT Exam: Resting ECG Reason for Exam: Back pain Patient Location: O HR:103 bpm ECG Measurements Heart Rate 103 AXIS NH 157 P 73 QRSd 88 QRS 46 QT 342 T 52 QTc 448 Conclusion Sinus tachycardia...rate> 99 Probable left atrial enlargement...P >50mS, <-0.10mV V1 Otherwise normal
== END 2022-01-11 13:10 | disposition home or self-care (01) ==
LOC: DI.CM 13:10
PROVIDERS: PCP Family Medicine; Visit Provider Nurse Practitioner Family
DX: R07.89 Other chest pain (principal); R94.31 Abnormal electrocardiogram [ECG] [EKG]; R00.0 Tachycardia, unspecified
CPT/HCPCS: 93010

== ENCOUNTER 2023-07-27 18:25 | Emergency (ER) | payer MEDICARE, SELFPAY ==
[2023-07-27] VITALS (38 sets, daily range): BP systolic 120–140; BP diastolic 75–102; PULSE 67–88; RESP 5–28; TEMP 36.5; O2SAT 88–100
--- NOTE | 2023-07-27 18:30 | RT.EKG_ITS ---
APPROVED REPORT Exam: Resting ECG Reason for Exam: unresponive on scene Patient Location: E HR:69 bpm ECG Measurements Heart Rate 69 AXIS NM 151 P 35 QRSd 97 QRS 63 QT 389 T 62 QTc 416 Conclusion Sinus rhythm...normal P axis, V-rate 60- 99 ST elev, probable normal early repol pattern...ST elevation, age<55 sinus rhythm, normal axis, normal intervals, j point elevation early repol
--- NOTE | 2023-07-27 18:46 | ED.GENADUL_ITS ---
Discharge Plan Disposition Patient Disposition: Home Condition: Improving Discharge Details Chief Complaint: OD/Poison Clinical Impression: Opioid overdose Primary Care Provider: Eriberto Freeman ED Provider: Rafi Griffin Home Meds and New Rx's Prescriptions: No Action triamcinolone acetonide 0.1 % cream 1 applic TP TID PRN (Reason: pruritis) Qty: 80 3RF magnesium 250 mg tablet 250 mg PO DAILY ginseng 100 mg capsule 100 mg PO DAILY acetaminophen 500 mg tablet 1,000 mg PO BID PRN diclofenac sodium 1 % gel 4 gm TP QID PRN (Reason: back pain) 6 Days Qty: 100 11RF cyclobenzaprine 10 mg tablet 10 mg PO TID PRN (Reason: muscle spasm) Qty: 20 0RF Rx Instructions: May take 1 tab every 8 hours as needed for muscle spasm. hydroxyzine HCl 25 mg tablet 25 mg PO QDAY PRN (Reason: anxiety) Qty: 90 3RF Rx Instructions: note dated 09/21/20 [facility] nortriptyline 50 mg capsule 50 mg PO .COMPLEX MDD 175 mg Qty: 270 3RF Rx Instructions: 50 mg orally t1 tab (with 25 mg tab) QAM and t2 tabs at night; No abrupt cessation nortriptyline 25 mg capsule 25 mg PO DAILY MDD 175 mg Qty: 90 3RF Rx Instructions: Take with morning dose of 50 mg tab multivitamin [Daily Value] 1 EACH tablet 1 ea PO DAILY vitamin B complex [B Complete] 1 EACH tablet 1 ea PO DAILY medical marijuana 1 ea PO 2XD PRN Hold Instructions: Home Medication placed on hold at Doctor's office Claritin-D 24 Hour 1 EACH tablet extended release 24 hr 1 tab-cap PO daily prn PRN valacyclovir 1 gram tablet 1,000 mg PO DAILY PRN (Reason: herpes flairs) Qty: 90 0RF Rx Instructions: For recurrent oral herpes infections albuterol sulfate [ProAir HFA] 90 mcg/actuation HFA aerosol inhaler 2 puff INHALATION Q6H PRN (Reason: cough) Qty: 8.5 6RF losartan 25 mg tablet 25 mg PO DAILY Qty: 90 3RF tizanidine 4 mg tablet 8 mg PO QHS PRN (Reason: muscle spasticity) Qty: 60 11RF amlodipine 10 mg tablet 10 mg PO HS Qty: 90 3RF atorvastatin 40 mg tablet 40 mg PO QHS Qty: 90 3RF albuterol sulfate 2.5 mg /3 mL (0.083 %) solution for nebulization 2.5 mg IH Q6H PRN (Reason: shortness of breath or wheezing) Qty: 75 0RF Discharge Instructions Instructions: Opioid Overdose ED Additional Instructions: Please follow-up with your primary care physician. Please return to the emergency department for any worsening symptoms HPI General Date/Time Provider Initiated Documentation: 07/27/23 18:25 . HPI Narrative: 52-year-old male brought in by EMS for evaluation of unresponsiveness, called to scene for unresponsive patient, patient was not breathing on arrival EMS crew noted Narcan next to patient, administered intranasal Narcan with immediate return to normal mentation, patient became nauseous and began vomiting, patient endorses is feeling fatigued over the last several days has been drinking alcohol excessively and also smoking fentanyl Related Data Home Medications Medication Instructions Recorded Confirmed multivitamin (Daily Value tablet) 1 ea PO DAILY 06/14/16 07/27/23 vitamin B complex (B Complete 1 ea PO DAILY 06/14/16 07/27/23 tablet) Medical Marijuana 1 ea PO 2XD PRN 05/16/17 07/27/23 loratadine-pseudoephedrine ER 10 1 tab-cap PO daily prn PRN 06/27/17 07/27/23 mg-240 mg tablet,extended [id number] (Claritin-D 24 Hour) albuterol sulfate 2.5 mg/3 mL 2.5 mg (3 mL) inhalation Q6H PRN 01/21/19 07/27/23 (0.083 %) solution for nebulization shortness of breath or wheezing #75 mL acetaminophen 500 mg tablet 1,000 mg PO BID PRN 02/05/19 07/27/23 diclofenac sodium 1 % topical gel 4 gm topical QID PRN back pain 6 03/06/19 07/27/23 days #100 grams triamcinolone acetonide 0.1 % 1 applic topical TID PRN pruritis 06/14/1907/26 topical cream #80 grams valacyclovir 1 gram tablet 1,000 mg PO DAILY PRN herpes 06/12/20 07/27/23 flairs #90 tabs albuterol sulfate 90 mcg/actuation 2 puff inhalation Q6H PRN cough 08/03/20 07/27/23 aerosol inhaler (ProAir HFA) #8.5 grams ginseng 100 mg capsule 100 mg PO DAILY 10/15/21 07/27/23 magnesium 250 mg tablet 250 mg PO DAILY 10/15/21 07/27/23 cyclobenzaprine 10 mg tablet 10 mg PO TID PRN muscle spasm #20 01/11/22 07/27/23 tabs losartan 25 mg tablet 25 mg PO DAILY #90 tabs 09/27/22 07/27/23 hydroxyzine HCl 25 mg tablet 25 mg PO QDAY PRN anxiety #90 tabs 10/28/22 07/27/23 nortriptyline 25 mg capsule 25 mg PO DAILY #90 caps 10/28/22 07/27/23 nortriptyline 50 mg capsule 50 mg PO .COMPLEX #270 caps 10/28/22 07/27/23 tizanidine 4 mg tablet 8 mg (2 x 4 mg) PO QHS PRN muscle 12/13/22 07/27/23 spasticity #60 tabs amlodipine 10 mg tablet 10 mg PO HS #90 tabs 12/22/22 07/27/23 atorvastatin 40 mg tablet 40 mg PO QHS #90 tabs 03/27/23 07/27/23 Previous Rx's Medication Instructions Recorded albuterol sulfate 2.5 mg/3 mL 2.5 mg (3 mL) inhalation Q6H PRN 01/21/19 (0.083 %) solution for nebulization shortness of breath or wheezing #75 mL diclofenac sodium 1 % topical gel 4 gm topical QID PRN back pain 6 03/06/19 days #100 grams triamcinolone acetonide 0.1 % 1 applic topical TID PRN pruritis 06/14/19 topical cream #80 grams valacyclovir 1 gram tablet 1,000 mg PO DAILY PRN herpes 06/12/20 flairs #90 tabs albuterol sulfate 90 mcg/actuation 2 puff inhalation Q6H PRN cough 08/03/20 aerosol inhaler (ProAir HFA) #8.5 grams cyclobenzaprine 10 mg tablet 10 mg PO TID PRN muscle spasm #20 01/11/22 tabs losartan 25 mg tablet 25 mg PO DAILY #90 tabs 09/27/22 hydroxyzine HCl 25 mg tablet 25 mg PO QDAY PRN anxiety #90 tabs 10/28/22 nortriptyline 25 mg capsule 25 mg PO DAILY #90 caps 10/28/22 nortriptyline 50 mg capsule 50 mg PO .COMPLEX #270 caps 10/28/22 tizanidine 4 mg tablet 8 mg (2 x 4 mg) PO QHS PRN muscle 12/13/22 spasticity #60 tabs amlodipine 10 mg tablet 10 mg PO HS #90 tabs 12/22/22 atorvastatin 40 mg tablet 40 mg PO QHS #90 tabs 03/27/23 Allergies Allergy/AdvReac Type Severity Reaction Status Date / Time gabapentin AdvReac Severe Visual Verified 07/27/23 18:49 Disturbances duloxetine [From Cymbalta] AdvReac Intermediate Facial Verified 07/27/23 18:49 tic, trouble swallowing pregabalin [From Lyrica] AdvReac Intermediate facial tic Verified 07/27/23 18:49 sertraline [From Zoloft] AdvReac Intermediate nighttime Verified 07/27/23 18:49 paranoia, confusion buspirone AdvReac increased Verified 07/27/23 18:49 agitation General LOLA: 4 Review of Systems Narrative: Review of Systems Constitutional: negative Eyes: negative ENT: negative Cardiovascular: negative Respiratory: negative Gastrointestinal: Nausea vomiting : negative Musculoskeletal: negative Skin: negative Neurologic: negative Psych: negative Exam Narrative Exam Narrative: Physical Examination General: alert, awake, cooperative, actively vomiting HEENT: normocephalic, atraumatic; PERRL, EOM intact, conjunctiva normal; no nasal discharge; moist mucous membranes, oral and pharyngeal mucosa normal, tolerating secretions Neck: supple, trachea midline; full ROM Chest: normal to inspection Respiratory: normal respiratory effort, speaking in full sentences, clear to auscultation, no wheezing, rales or rhonchi Cardiac: regular rate, regular rhythm, S1S2 intact, no murmurs rubs or gallops GI: abdomen soft, non-tender, non-distended; no palpable mass or hepatosplenomegaly Skin: no lesions, rashes or trauma appreciated Neuro: AAOx3, normal speech, moving all extremities Extremities: No peripheral edema no signs of trauma Psych: Appropriate mood and affect Medical Decision Making 52-year-old male brought in by EMS after likely opioid overdose, found unresponsive at scene, given Narcan with immediate response, patient did become nauseous and began vomiting, active vomiting upon arrival alert interactive does endorse smoking fentanyl and drinking heavily over the last couple of days, patient is showing signs of metabolizing Narcan becoming somewhat more somnolent requiring physical stimulation, will likely place on nebulized Narcan therapy and monitor here in department will also place on end-tidal CO2 monitoring, if need be will start Narcan drip, will obtain basic labs will provide fluids antiemetics close reassessment of respiratory status and hemodynamics. Low suspicion for primary intracranial process or cardiac process. Likely opioid overdose 19: 02 patient become more somnolent, placed on end-tidal CO2, was able to prepare a naloxone neb with 2 mg naloxone mixed in 3 mL sodium chloride will monitor mental status and respiratory status and hemodynamics closely if able to wean off of Narcan neb consider discharge home versus admission if not improving 19: 16 patient responding well to Narcan neb. Alert interactive hemodynamically stable. 21: 53 patient resting really alert oriented interactive maintaining airway tolerating secretions. Labs and imaging unremarkable. 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 (Acute) Generalized anxiety disorder (Acute) Cervical neuralgia (Acute) Pruritus ani (Acute) He's palsy (Acute) Inguinal hernia (Acute) Bilateral Anal or rectal pain (Acute) Chronic back pain (Acute) Chronic pain (Acute 06/15/16) Macular degeneration (Acute) Medical History Anal fissure Bleeding hemorrhoids Diverticulitis Hemorrhoids that prolapse with straining, but retract spontaneously Hyperplastic colon polyp Legally blind Surgical History H/O rectal sphincterotomy (11/23/17) and hemorrhoid banding, Dr Hernandez History of left inguinal hernia repair History of right inguinal hernia repair Family History Father Heart disease Hypertension PTSD (post-traumatic stress disorder) Anxiety Mother Diabetes Heart disease Social History Smoking/Tobacco Use Status: Former Tobacco Use tobacco type: cigarettes Quit Date: 07/16/13 Tobacco: How many years used: 5 Quit status: quit date established Second Hand Exposure: No Smoking risk assessment performed?: Yes Alcohol Intake: current Alcohol Intake frequency: a few times a week Alcohol type: beer Drug use: Daily Substance use type: marijuana and crack/cocaine Details: Edible medical marijuna per pt, recreational crack/cocaine, Narcan but never uses. Adopted: No Caregiver/Support person: No Foster care: No Household members: none Housing: apartment Number of Children: 2 number of grandchildren: 0 Communication Needs: Blind Do you need help understanding health information?: Rarely current occupation: Disabled-Has Juvenile macular Degenaration Pets and animals: No (Spends time with daughters dog daily) Sexually active: No Do you think of yourself as: straight/heterosexual Current gender identity: male What is your relationship status?: How often do you talk on the phone with friends or family?: three or more times per week How often do you get together with friends or relatives?: three or more times per week How often do you attend moravian or rastafari services?: decline to answer Do you belong to any clubs or organized social groups?: no Panel score (0-1 are the most socially isolated patients): 1 What type of physical activity do you participate in: walking, yoga and additional Details: Pt walks everywhere and volunteers 4 days a week at [facility] Duration: 60-90 minutes/day Frequency: daily Irene/Christianity: Adventism Special irene needs: No Seatbelt use: always Helmet use: No Drive intox or ride w/intox route delivery driver: No Do you feel safe at home: Yes Do you feel safe in your relationship?: Yes
[2023-07-27 18:48] LABS: BE (Venous) 0 mmol/L (-2-3); HCO3 (Venous) 26 mmol/L (23-28); O2 Sat (Venous) 50 %; TCO2 (Venous) 23 mmol/L (24-29); pCO2 (Venous) 48 mmHg (41-51); pH (Venous) 7.33 (7.31-7.41); pO2 (Venous) 28 mmHg
[2023-07-27 18:51] LABS: Abs Immature Grans 0.03 10^3/uL (0.0-0.06); Absolute Basophil Count 0.06 10^3/uL (0.0-0.2); Absolute Eosinophil Count 0.14 10^3/uL (0.0-0.7); Absolute Lymphocyte Count 1.89 10^3/uL (1.2-3.4); Absolute Monocyte Count 0.75 10^3/uL (0.1-0.8); Absolute Neutrophil Count 6.57 10^3/uL (1.2-6.7); Basophils % 0.6 %; Eosinophils % 1.5 %; HGB 14.8 g/dL (13.5-17.5); Immature Grans % 0.3 %; MCH 29.7 pg (27.0-33.0); MCHC 32.9 % (32.0-36.0); MCV 90 fL (80-95); MPV 8.6 fL (8.0-11.0); Monocytes % 7.9 %; Neutrophils % 69.7 %; Platelet Count 383 10^3/uL (130-400); RBC 4.98 10^6/uL (4.36-5.78); RDW 13.1 % (11.8-14.1); RDW-SD 42.7 fL; WBC 9.44 10^3/uL (4.4-10.8)
--- NOTE | 2023-07-27 19:00 | DI.RAD_ITS ---
Exam(s) XR PORTABLE CHEST AP EXAM: XR PORTABLE CHEST AP CLINICAL HISTORY: ams od TECHNIQUE: 2D digital imaging was performed. COMPARISON: CR XR CHEST 2V PA LATERAL from 01/21/2019 FINDINGS: Monitoring leads and oxygen tubing overlie the chest. LUNGS: Clear. No pleural abnormality seen. HEART: Normal size. AORTA: Normal diameter. BONES: Unremarkable for age. Soft tissues: Unremarkable. IMPRESSION: No acute findings. DATA REPOSITORY: RADIATION DOSE DELIVERED:
[2023-07-27 19:05] LABS: PTT Activated 21.2 sec (23.6-32.8); Prothrombin Time 10.4 sec (9.1-11.1)
[2023-07-27] MEDS: Normal Saline 1,000 ML 1000 ML IV (19:08)
[2023-07-27] MEDS: Ondansetron 4 MG/2 ML VIAL IVP (19:08)
[2023-07-27 19:19] LABS: Salicylate < 2.8 mg/dL (<2.8)
[2023-07-27 19:24] LABS: Acetaminophen < 2 ug/mL (10-30)
[2023-07-27 19:32] LABS: Bilirubin Negative (Negative); Blood Negative (Negative); Clarity Sl Cloudy (Clear); Glucose Negative (Negative); Ketones Negative (Negative); Leukocyte Esterase Negative (Negative); Nitrite Negative (Negative); Specific Gravity >= 1.030 (1.005-1.025); Urobilinogen 0.2 mg/dL (Up to 0.2); pH 5.5 (5-8)
[2023-07-27 19:36] LABS: ALT 40 U/L (16-63); AST 23 U/L (15-37); Albumin 4.4 g/dL (3.4-5.0); Alkaline Phosphatase 86 U/L (46-116); Anion Gap 13.1 mmol/L (3-11); BUN 21 mg/dL (7-18); Bilirubin, Total 0.34 mg/dL (0.2-1.0); CO2 24.9 mmol/L (21.0-32.0); CREATININE 1.6 mg/dL (0.70-1.30); Calcium 9.1 mg/dL (8.5-10.1); Chloride 103 mmol/L (98-107); ETHANOL BLOOD 6.9 mg/dL (<10); Estimated GFR 50.88 (mL/min/1.73m2); Glucose 116 mg/dL (74-106); Lipase 27 U/L (16-77); Magnesium 2.3 mg/dL (1.8-2.4); NT-proBNP 19 pg/mL (<300); Sodium 141 mmol/L (136-145); TSH (W/Ref FT4) 9.06 uIU/mL (0.36-3.74); Total Protein 7.4 g/dL (6.4-8.2); Troponin I < 50 ng/L (< or =60)
[2023-07-27 19:44] LABS: *AMPHETAMINES SCREEN URINE Negative (Negative); *BARBITURATES SCREEN URINE Negative (Negative); *BENZODIAZEPINES SCREEN URINE Negative (Negative); Cannabinoids THC Positive (Negative); Cocaine Screen,Urine Positive (Negative); METHADONE URINE SCREEN Negative (Negative); OPIATES URINE SCREEN Negative (Negative)
[2023-07-27 19:46] LABS: Tricyclic Antidepressants Positive (Negative)
[2023-07-27 19:49] LABS: Bacteria Moderate HPF (Negative); Crystals Negative HPF (Negative); Epithelial Cells Negative HPF (Negative); Mucus Heavy (Negative); RBC 0-2 HPF (0-2)
[2023-07-27 19:50] LABS: C & S Indicated? No; Casts 20-50 Hyaline LPF (Negative)
[2023-07-27 19:53] LABS: FREE T4 0.97 ng/dL (0.76-1.46)
--- NOTE | 2023-07-27 20:47 | DI.VRAD_ITS ---
PROCEDURE INFORMATION: Exam: XR Chest Exam date and time: 07/27/2023 7:26 PM Age: 52 years old Clinical indication: Other: AMS od TECHNIQUE: Imaging protocol: Radiologic exam of the chest. Views: 1 view. Other technique: Portable exam. COMPARISON: CR XR CHEST 2V PA LATERAL 01/21/2019 11:06 AM FINDINGS: Lungs: Unremarkable. No consolidation. Pleural spaces: Unremarkable. No pleural effusion. No pneumothorax. Heart/Mediastinum: Unremarkable. No cardiomegaly. Bones/joints: Unremarkable. IMPRESSION: No evidence for acute abnormality in the chest. Dictated and Authenticated by: Brenda Lance MD. Ordering:ALAN Mckee MD
[2023-07-27 21:49] LABS: Troponin I < 50 ng/L (< or =60)
== END 2023-07-27 22:02 | disposition home or self-care (01) ==
PROVIDERS: Emergency Provider Emergency Medicine; PCP Family Medicine
DX: R40.4 Transient alteration of awareness (principal); R11.10 Vomiting, unspecified; T40.2X1A Poisoning by other opioids, accidental (unintentional), initial encounter; Y92.89 Other specified places as the place of occurrence of the external cause
CPT/HCPCS: 80053; 80307; 82805; 82962; 83690; 93005; 96361; 96374; 71045; 80320; 80329; 81003; 81015; 83735; 83880; 84439; 84443; 84484; 85025; 85610; 85730; 93010; 99284; J2310; J2405

== ENCOUNTER 2023-11-10 02:58 | Outpatient (CLI) | payer MEDICARE, SELFPAY ==
[2023-11-10 10:17] LABS: Abs Immature Grans 0.01 10^3/uL (0.0-0.06); Absolute Basophil Count 0.05 10^3/uL (0.0-0.2); Absolute Eosinophil Count 0.05 10^3/uL (0.0-0.7); Absolute Neutrophil Count 3.33 10^3/uL (1.2-6.7); HCT 42.3 % (40.0-50.0); HGB 14.5 g/dL (13.5-17.5); Immature Grans % 0.2 %; Lymphocytes % 21.4 %; MCH 29.8 pg (27.0-33.0); MCHC 34.3 % (32.0-36.0); MCV 87 fL (80-95); MPV 8.5 fL (8.0-11.0); Monocytes % 11.7 %; Neutrophils % 64.7 %; Platelet Count 302 10^3/uL (130-400); RBC 4.87 10^6/uL (4.36-5.78); RDW-SD 40.4 fL; WBC 5.14 10^3/uL (4.4-10.8)
[2023-11-10 10:50] LABS: TSH (W/Ref FT4) 2.11 uIU/mL (0.36-3.74)
[2023-11-10 21:20] LABS: CRP, High Sensitivity 0.88 mg/L (See Note)
[2023-11-13 09:24] LABS: HIV-1/2 Ag & Ab Screen Negative (Negative)
[2023-11-13 10:15] LABS: Syphilis Serology (RPR) Negative (Negative)
[2023-11-13 12:23] LABS: HBs Antibody, Qual Negative (See Note); HBs Antibody, Quant <3.1 mIU/mL (See Note); Hepatitis B Core Antibody Negative (Negative); Hepatitis B surface Ag Negative (Negative); Hepatitis C Ab w Rflx HCV PCR Negative (Negative)
== END 2023-11-10 02:59 | disposition home or self-care (01) ==
LOC: LBO 02:59
PROVIDERS: PCP Family Medicine; Visit Provider Family Medicine
DX: R79.89 Other specified abnormal findings of blood chemistry (principal); R61 Generalized hyperhidrosis
CPT/HCPCS: 36415; 86141; 86704; 86706; 86803; 87340; 87389; 84443; 85025; 86592

== ENCOUNTER 2024-02-08 16:13 | Outpatient (CLI) | payer MEDICARE, SELFPAY ==
--- NOTE | 2024-02-08 15:45 | DI.RAD_ITS ---
Exam(s) XR CHEST 2V PA LATERAL EXAM: XR CHEST 2V PA LATERAL CLINICAL HISTORY: R05.9 Chronic productive cough, unsanitary living TECHNIQUE: 2D digital imaging was performed. Two views. COMPARISON: CR,XR XR PORTABLE CHEST AP from 07/27/2023 FINDINGS: HEART: Normal size. Aorta: Not dilated. PULMONARY VASCULATURE: Normal. MEDIASTINUM: Unremarkable. LUNGS: Clear. PLEURAL SPACE: No pleural effusion or pneumothorax. BONE:Unremarkable for age. SOFT TISSUES: Unremarkable. IMPRESSION: No acute abnormality. DATA REPOSITORY: RADIATION DOSE DELIVERED:
== END 2024-02-08 16:33 ==
PROVIDERS: PCP Family Medicine; Visit Provider Family Medicine
DX: R05.9 Cough, unspecified (principal)
CPT/HCPCS: 71046

== ENCOUNTER 2024-06-21 11:54 | Emergency (ER) | payer MEDICARE, SELFPAY ==
[2024-06-21 11:58] VITALS: BP 141/91; PULSE 78; RESP 18; TEMP 36.8; O2SAT 97
--- NOTE | 2024-06-21 12:18 | ED.GENADUL_ITS ---
Discharge Plan Disposition Patient Disposition: Home Condition: Improving Discharge Details Clinical Impression: Neck pain Primary Care Provider: Eriberto Freeman ED Provider: Emanuel Viramontes Home Meds and New Rx's Prescriptions: New cyclobenzaprine 10 mg tablet 10 mg PO TID PRNQty: 14 0RF Continued mupirocin 2 % ointment 1 applic topical TID Qty: 15 0RF quetiapine 150 mg tablet 150 mg PO DAILY Qty: 30 0RF diclofenac sodium 1 % gel 4 g TP QID PRN (Reason: back pain) 6 Days Qty: 100 11RF acetaminophen 500 mg tablet 1,000 mg PO BID PRN nortriptyline 50 mg capsule 50 mg PO .COMPLEX MDD 175 mg Qty: 270 3RF Rx Instructions: 50 mg orally t1 tab (with 25 mg tab) QAM and t2 tabs at night; No abrupt cessation amlodipine 10 mg tablet 10 mg PO HS Qty: 90 3RF cyclobenzaprine 10 mg tablet 10 mg PO TID PRN (Reason: muscle spasm) Qty: 60 3RF Rx Instructions: May take 1 tab every 8 hours as needed for muscle spasm. multivitamin [Daily Value] 1 EACH tablet 1 ea PO DAILY vitamin B complex [B Complete] 1 EACH tablet 1 ea PO DAILY Claritin-D 24 Hour 1 EACH tablet extended release 24 hr 1 tab-cap PO daily prn PRN losartan 25 mg tablet 25 mg PO DAILY Qty: 90 3RF nortriptyline 25 mg capsule 25 mg PO DAILY MDD 175 mg Qty: 90 3RF Rx Instructions: Take with morning dose of 50 mg tab triamcinolone acetonide 0.1 % cream 1 applic TP TID PRN (Reason: pruritis) Qty: 80 3RF tizanidine 4 mg tablet 8 mg PO QHS PRN (Reason: muscle spasticity) Qty: 60 11RF albuterol sulfate 90 mcg/actuation HFA aerosol inhaler 2 puff INHALATION Q6H PRN (Reason: cough) Qty: 8.5 6RF valacyclovir 1 gram tablet 1,000 mg PO DAILY PRN (Reason: herpes flairs) Qty: 90 0RF Rx Instructions: For recurrent oral herpes infections atorvastatin 40 mg tablet 40 mg PO QHS Qty: 90 3RF omeprazole 20 mg capsule,delayed release(DR/EC) 20 mg PO QHS Qty: 90 3RF Discharge Instructions Instructions: Neck Stretches, Neck Pain ED Additional Instructions: Continue Tylenol and Motrin as directed. Gentle stretching as tolerated. Cool and/or warm compresses every 2 hours for 20 minutes. Please watch for new or worsening symptoms and return to the ER for any concerns. Cyclobenzaprine as directed, this medication may cause drowsiness. Lastly, I recommend contacting your primary care provider to make aware of the ER visit and need for outpatient reevaluation. Discharge Data Discharge Date/Time-TO BE ENTERED AT DEPARTURE: 06/21/24 14:16 HPI General Mode of arrival: ambulatory . Date/Time Provider Initiated Documentation: 06/21/24 11:56 . Limitations to Documentation: no limitations . Information obtained by: patient . History of Present Illness 53 year old M presents to the emergency department with the chief complaint of R sided neck pain, described as severe, with intensity rated at 8. Quality is described as aching, and is localized to the neck and right. Patient reports no radiation. Patient started experiencing this day(s) (3) and it has been constant. Immobilization improves symptom(s), Movement worsens symptoms . Patient notes no other symptoms.. Patient did receive the following treatments prior to arrival, NSAID and other (Acetaminophen) Related Data Home Medications ?Medication ?Instructions ?Recorded ?Confirmed multivitamin (Daily Value tablet) 1 ea PO DAILY 06/14/16 06/21/24 vitamin B complex (B Complete 1 ea PO DAILY 06/14/16 06/21/24 tablet) loratadine-pseudoephedrine ER 10 1 tab-cap PO daily prn PRN 06/27/17 06/21/24 mg-240 mg tablet,extended [id number] (Claritin-D 24 Hour) acetaminophen 500 mg tablet 1,000 mg PO BID PRN 02/05/19 06/21/24 nortriptyline 50 mg capsule 50 mg PO .COMPLEX #270 caps 10/28/22 06/21/24 losartan 25 mg tablet 25 mg PO DAILY #90 tabs 09/25/23 06/21/24 nortriptyline 25 mg capsule 25 mg PO DAILY #90 caps 10/31/23 06/21/24 triamcinolone acetonide 0.1 % 1 applic topical TID PRN pruritis 11/10/23 06/21/24 topical cream #80 grams tizanidine 4 mg tablet 8 mg (2 x 4 mg) PO QHS PRN muscle 01/08/24 06/21/24 spasticity #60 tabs albuterol sulfate 90 mcg/actuation 2 puff inhalation Q6H PRN cough 02/12/24 06/21/24 aerosol inhaler #8.5 grams amlodipine 10 mg tablet 10 mg PO HS #90 tabs 03/05/24 06/21/24 valacyclovir 1 gram tablet 1,000 mg PO DAILY PRN herpes 03/05/24 06/21/24 flairs #90 tabs cyclobenzaprine 10 mg tablet 10 mg PO TID PRN muscle spasm #60 03/28/24 06/21/24 tabs atorvastatin 40 mg tablet 40 mg PO QHS #90 tabs 04/12/24 06/21/24 omeprazole 20 mg capsule,delayed 20 mg PO QHS #90 caps 05/27/24 06/21/24 release diclofenac sodium 1 % topical gel 4 g topical QID PRN back pain 6 05/31/24 06/21/24 days #100 grams mupirocin 2 % topical ointment 1 applic topical TID #15 grams 05/31/24 06/21/24 quetiapine 150 mg tablet 150 mg PO DAILY #30 tabs 05/31/24 06/21/24 cyclobenzaprine 10 mg tablet 10 mg PO TID PRN #14 tabs 06/21/24 06/21/24 Previous Rx's ?Medication ?Instructions ?Recorded nortriptyline 50 mg capsule 50 mg PO .COMPLEX #270 caps 10/28/22 losartan 25 mg tablet 25 mg PO DAILY #90 tabs 09/25/23 nortriptyline 25 mg capsule 25 mg PO DAILY #90 caps 10/31/23 triamcinolone acetonide 0.1 % 1 applic topical TID PRN pruritis 11/10/23 topical cream #80 grams tizanidine 4 mg tablet 8 mg (2 x 4 mg) PO QHS PRN muscle 01/08/24 spasticity #60 tabs albuterol sulfate 90 mcg/actuation 2 puff inhalation Q6H PRN cough 02/12/24 aerosol inhaler #8.5 grams amlodipine 10 mg tablet 10 mg PO HS #90 tabs 03/05/24 valacyclovir 1 gram tablet 1,000 mg PO DAILY PRN herpes 03/05/24 flairs #90 tabs cyclobenzaprine 10 mg tablet 10 mg PO TID PRN muscle spasm #60 03/28/24 tabs atorvastatin 40 mg tablet 40 mg PO QHS #90 tabs 04/12/24 omeprazole 20 mg capsule,delayed 20 mg PO QHS #90 caps 05/27/24 release diclofenac sodium 1 % topical gel 4 g topical QID PRN back pain 6 05/31/24 days #100 grams mupirocin 2 % topical ointment 1 applic topical TID #15 grams 05/31/24 quetiapine 150 mg tablet 150 mg PO DAILY #30 tabs 05/31/24 cyclobenzaprine 10 mg tablet 10 mg PO TID PRN #14 tabs 06/21/24 Allergies Allergy/AdvReac Type Severity Reaction Status Date / Time gabapentin AdvReac Severe Visual Verified 06/21/24 12:02 Disturbances duloxetine (From Cymbalta) AdvReac Intermediate Facial Verified 06/21/24 12:02 tic, trouble swallowing pregabalin (From Lyrica) AdvReac Intermediate facial tic Verified 06/21/24 12:02 sertraline (From Zoloft) AdvReac Intermediate nighttime Verified 06/21/24 12:02 paranoia, confusion buspirone AdvReac increased Verified 06/21/24 12:02 agitation General Stated Complaint: GenMedical LOLA: 3 Review of Systems Constitutional Constitutional: Denies fatigue, Denies headache(s) and Denies weakness Eyes Eyes: Denies change in vision ENT Ears, Nose, Mouth, and Throat: Denies headache(s), Denies neck mass, Reports neck pain and Denies sore throat Cardiovascular Cardiovascular: Denies chest pain Respiratory Respiratory: Denies cough Gastrointestinal Gastrointestinal: Denies abdominal pain and Denies nausea Musculoskeletal Musculoskeletal: Denies myalgias, Denies arthralgias, Reports neck pain, Denies numbness, Reports stiffness and Denies tingling Integumentary/Breasts Skin/Breast: Denies rash Neurologic Neurologic: Denies headache(s), Denies numbness, Denies tingling and Denies weakness Endocrine Endocrine: Denies fatigue Exam Const General: cooperative, healthy appearing, comfortable and no acute distress Orientation: alert, awake and oriented x3 HENMT Head: normal to inspection, normocephalic and atraumatic Ears: hearing grossly normal bilaterally Face and sinus: normal facial exam Mouth: moist mucous membranes Throat: posterior oropharynx normal Eyes General: appearance normal, both eyes and all related structures Conjunctivae: conjunctivae normal Neck Neck: normal visual inspection, no lymphadenopathy, no meningeal signs, trachea midline, supple and tender (Right paravertebral, trapezius, sternocleidomastoid) Resp Effort & Inspection: normal respiratory effort and able to speak in complete sentences Auscultation: clear to auscultation bilaterally Cardio Rate: regular rate Rhythm: regular rhythm GI Palpation: soft and nontender Back/Spine/Pelvis Back: No back tenderness Skin General skin exam: no rashes or lesions noted Neuro General: patient alert, patient awake, moves all extremities and no focal motor deficits Cognition: normal cognition Speech: speech normal Gait: normal gait Motor: muscle tone normal throughout Sensory Exam: no sensory deficits noted Extrem General: normal to inspection, full ROM and capillary refill normal Psych Appearance: grossly normal Mental Status: mental status grossly normal Course Vital Signs Vital signs: Vital Signs Temperature 36.8 C 06/21/24 11:58 Pulse 78 06/21/24 11:58 Respiratory Rate 18 06/21/24 11:58 Blood Pressure 141/91 H 06/21/24 11:58 Pulse Oximetry 97 06/21/24 11:58 Temperature 36.8 C 06/21/24 11:58 Temperature Source Oral 06/21/24 11:58 Pulse 78 06/21/24 11:58 Respiratory Rate 18 06/21/24 11:58 Blood Pressure 141/91 H 06/21/24 11:58 Pulse Oximetry 97 06/21/24 11:58 Oxygen Delivery Method Room Air 06/21/24 11:58 Oxygen Flow Rate 0 06/21/24 11:58 Pain Level 9 06/21/24 11:58 Medical Decision Making 53-year-old gentleman with past medical history of bipolar type II disorder, anxiety, hypertension, cervical neuralgia, chronic back pain, presenting to the ER for right sided neck pain. Unfortunately he is a bit of a poor historian, his HPI is change as time goes on. 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 He denies obvious trauma but certainly increase activity, increased weighted movements, and repetitive motion. He states then a few days ago he awoke in the morning with increased right sided neck pain. He states this feels muscular in nature. Endorses a period of neck pain previously for which she went to PT and it helped significantly, this feels similar. He also tells me that he is concerned for potential Lyme disease although does not recall a tick bite. He denies skin rash or joint pain. He also states that he is moving because of black mold to which she has been exposed and is concerned about some sort of infectious process. Denies headache or midline neck pain. Denies fever denies radiation of the pain into his chest, into his back, or down his arm. He was just evaluated urgent care, that note is not complete but from what I gather, clinically this appeared to be musculoskeletal in nature but patient was concerned for potential infection. Clinically he appears well, nontoxic. He is afebrile. No meningeal signs. He is able to demonstrate good flexion and extension. He has limited rotational movement especially in the ipsilateral side given increased pain. Diffuse m uscular and soft tissue discomfort although I do not appreciate any obvious spasm. No radicular symptoms. Discussed in length with patient. Examination is most consistent with a musculoskeletal etiology. Given his overall concern, I do believe it is reasonable to obtain routine screening laboratory values and a tick panel although infectious process, Lyme disease, extremely low suspicion. Again no meningeal signs discussed imaging, using shared decision making, patient does not believe this is necessary. While awaiting his CBC and CMP, will provide IM Toradol and Norflex and assess his response. Patient remained hemodynamically stable. Discussed his reassuring lab values. White blood cell count minimally elevated 11.6. Electrolytes unremarkable. Tick and Lyme panel pending. Patient admits to moderate improvement with the IV medications. He answers my questions with shaking his head yes and no. Again no evidence of meningeal symptoms. He remains neurologically intact. Denies any radicular symptoms. He will continue with Tylenol and Motrin [id number]. Discussed [id number] Lidoderm patches. Discussed cool and/or warm compresses. Also discussed gentle stretching. Will provide prescription of cyclobenzaprine. Discussed this medication may cause drowsiness. Patient is very comfortable with this plan and has no additional questions or concerns. Encouraged to watch for new or worsening symptoms and return immediately to the ER. Otherwise I recommend contacting his PCP to discuss his symptoms and recent express care and ER visit. Discussed that if symptoms do not respond with rest, activity modification, other conservative measures, and cyclobenzaprine, referral to PT may be necessary given how well he responded to this previously. Standard discharge and return precautions were provided. Patient understands, is agreeable to this plan, and has no additional questions or concerns upon discharge. This documentation was generated using [employer] system, please disregard any oddities of phrase or misspellings. Medical Records Medical records reviewed: Yes I reviewed the patient's medical records. Lab Data Lab results reviewed: Yes I reviewed the patient's lab results. Labs: Laboratory Tests Range/Units 06/21/24 12:30 WBC (4.4-10.8) 10^3/uL 11.67 H RBC (4.36-5.78) 10^6/uL 4.78 Hgb (13.5-17.5) g/dL 14.7 Hct (40.0-50.0) % 43.0 MCV (80-95) fL 90 MCH (27.0-33.0) pg 30.8 MCHC (32.0-36.0) % 34.2 RDW (11.8-14.1) % 12.7 Plt Count (130-400) 10^3/uL 335 MPV (8.0-11.0) fL 8.6 Immature Gran % % 0.2 Neutrophils % % 75.5 Lymphocytes % % 14.5 Monocytes % % 9.0 Eosinophils % % 0.4 Basophils % % 0.4 Nucleated RBC % (0.0-0.3) % 0.0 Absolute Neutrophils (1.2-6.7) 10^3/uL 8.81 H Absolute Lymphocytes (1.2-3.4) 10^3/uL 1.69 Absolute Monocytes (0.1-0.8) 10^3/uL 1.05 H Absolute Eosinophils (0.0-0.7) 10^3/uL 0.05 Absolute Basophils (0.0-0.2) 10^3/uL 0.05 Sodium (136-145) mmol/L 138 Potassium (3.5-5.1) mmol/L 3.6 Chloride (98-107) mmol/L 103 Carbon Dioxide (21.0-32.0) mmol/L 26.2 Anion Gap (3-11) mmol/L 8.8 BUN (7-18) mg/dL 12 Creatinine (0.70-1.30) mg/dL 0.9 Est GFR (CKD-EPI 2020) (mL/min/1.73m2) 100.86 Glucose (74-106) mg/dL 141 H Calcium (8.5-10.1) mg/dL 9.1 Total Bilirubin (0.2-1.0) mg/dL 0.4 AST (15-37) U/L 23 ALT (16-63) U/L 32 Alkaline Phosphatase (46-116) U/L 87 Total Protein (6.4-8.2) g/dL 7.2 Albumin (3.4-5.0) g/dL 4.3 Quality:SDOH Health Related Social Needs: Health related social needs details Patient seems to h ave adequate support and is aware of resources PFSH All Active Problems Neck pain (Acute) GERD (gastroesophageal reflux disease) (Chronic) Bipolar II disorder (Acute) Cough (Acute) Patellar tracking disorder of left knee (Acute) Knee pain (Acute) Night sweat (Acute) 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) Hearing deficit (Acute) Pre-diabetes (Acute) Anxiety disorder, unspecified (Acute) Encounter for screening colonoscopy (Acute) 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 (Acute) Panic attacks (Acute) Agoraphobia (Acute) Hyperlipidemia (Chronic) [place] score 15% at age 48, started atorvastatin Winter itch (Acute) Asthma (Chronic) Hypertension (Chronic) 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 (Acute) Generalized anxiety disorder (Acute) Cervical neuralgia (Acute) Pruritus ani (Acute) He's palsy (Acute) Inguinal hernia (Acute) Bilateral Anal or rectal pain (Acute) Chronic back pain (Acute) Chronic pain (Acute 06/15/16) Macular degeneration (Acute) Medical History Hyperplastic colon polyp Diverticulitis Bleeding hemorrhoids Anal fissure Hemorrhoids that prolapse with straining, but retract spontaneously Legally blind Surgical History History of left inguinal hernia repair History of right inguinal hernia repair H/O rectal sphincterotomy (11/23/17) and hemorrhoid banding, Dr Hernandez Family History Father Heart disease Hypertension PTSD (post-traumatic stress disorder) Anxiety Mother Diabetes Heart disease Social History Smoking/Tobacco Use Status: Former Tobacco Use tobacco type: cigarettes Quit Date: 07/16/13 Tobacco: How many years used: 5 Quit status: quit date established Second Hand Exposure: No Smoking risk assessment performed?: Yes Alcohol Intake: current Alcohol Intake frequency: a few times a week Alcohol type: beer Drug use: Socially Substance use type: marijuana and crack/cocaine Details: Edible medical marijuna per pt, recreational crack/cocaine, Narcan but never uses. 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 [employer] Pets and animals: Yes (3) Pets and animals: dog(s) Sexually active: No Do you think of yourself as: straight/heterosexual Current gender identity: male What is your relationship status?: living with partner How often do you talk on the phone with friends or family?: once per week How often do you get together with friends or relatives?: never Do you belong to any clubs or organized social groups?: no Panel score (0-1 are the most socially isolated patients): 1 What type of physical activity do you participate in: walking, yoga and additional Details: Pt walks everywhere and volunteers 4 days a week at [facility] Duration: 60-90 minutes/day Frequency: daily Irene/Anabaptism: Caodaism Special irene needs: No Seatbelt use: always Helmet use: No Drive intox or ride w/intox buggy driver: No Do you feel safe at home: Yes Do you feel safe in your relationship?: Yes
[2024-06-21] MEDS: Ketorolac 30 MG/ML VIAL IVP (12:37)
[2024-06-21] MEDS: Orphenadrine 60 MG/2 ML VIAL IVP (12:38)
[2024-06-21 12:40] LABS: Abs Immature Grans 0.02 10^3/uL (0.0-0.06); Absolute Basophil Count 0.05 10^3/uL (0.0-0.2); Absolute Eosinophil Count 0.05 10^3/uL (0.0-0.7); Absolute Lymphocyte Count 1.69 10^3/uL (1.2-3.4); Absolute Monocyte Count 1.05 10^3/uL (0.1-0.8); Absolute Neutrophil Count 8.81 10^3/uL (1.2-6.7); Basophils % 0.4 %; Eosinophils % 0.4 %; HGB 14.7 g/dL (13.5-17.5); Immature Grans % 0.2 %; Lymphocytes % 14.5 %; MCH 30.8 pg (27.0-33.0); MCHC 34.2 % (32.0-36.0); MCV 90 fL (80-95); MPV 8.6 fL (8.0-11.0); Neutrophils % 75.5 %; Platelet Count 335 10^3/uL (130-400); RBC 4.78 10^6/uL (4.36-5.78); RDW 12.7 % (11.8-14.1); RDW-SD 41.6 fL; WBC 11.67 10^3/uL (4.4-10.8)
[2024-06-21 13:00] LABS: ALT 32 U/L (16-63); AST 23 U/L (15-37); Albumin 4.3 g/dL (3.4-5.0); Alkaline Phosphatase 87 U/L (46-116); Anion Gap 8.8 mmol/L (3-11); BUN 12 mg/dL (7-18); Bilirubin, Total 0.4 mg/dL (0.2-1.0); CO2 26.2 mmol/L (21.0-32.0); CREATININE 0.9 mg/dL (0.70-1.30); Calcium 9.1 mg/dL (8.5-10.1); Chloride 103 mmol/L (98-107); Estimated GFR 100.86 (mL/min/1.73m2); Glucose 141 mg/dL (74-106); Potassium 3.6 mmol/L (3.5-5.1); Sodium 138 mmol/L (136-145); Total Protein 7.2 g/dL (6.4-8.2)
[2024-06-21 14:14] VITALS: BP 126/88; PULSE 73; RESP 16; TEMP 36.6; O2SAT 100
[2024-06-24 11:53] LABS: Lyme Ab w Rflx to Lyme Confirm Negative (Negative)
[2024-06-25 02:22] LABS: Anaplasma phagocytophilum Negative (Negative); B. miyamotoi PCR Negative (Negative); Babesia divergens/MO-1 Negative (Negative); Babesia duncani Negative (Negative); Babesia microti Negative (Negative); Ehrlichia chaffeensis Negative (Negative); Ehrlichia ewingii/canis Negative (Negative); Ehrlichia muris eauclairensis Negative (Negative)
== END 2024-06-21 14:16 | disposition home or self-care (01) ==
PROVIDERS: Emergency Provider Physician Assistant; PCP Family Medicine
DX: M54.2 Cervicalgia (principal)
CPT/HCPCS: 99283; 99284; 96374; 96375; 36415; 80053; 87798; J2360; 85025; 86618; J1885